=== PATIENT | male | born 1970 | race African-American/Black ===

== ENCOUNTER 2019-02-08 09:21 | Inpatient (IN) | payer OTHER ==
[2019-02-08 10:05] VITALS: BMI 32.8
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
[2019-02-08] MEDS ORDERED: IBUPROFEN 400 MG TABLET (FP) PO PRN (11:24)
[2019-02-08] MEDS ORDERED: MAG HYDROX/AL HYDROX/SIMETH 30 ML UNIT-DOSE CUP PO PRN (11:24)
[2019-02-08] MEDS ORDERED: chlordiazePOXIDE HCL 25 MG CAPSULE PO PRN (11:24)
[2019-02-08] MEDS ORDERED: ACETAMINOPHEN 325 MG TABLET (FP) PO PRN ×2 (11:24)
[2019-02-08] MEDS ORDERED: METHOCARBAMOL 500 MG TABLET PO PRN (11:24)
[2019-02-08] MEDS ORDERED: MAGNESIUM CITRATE 300 ML BOTTLE PO PRN (11:24)
[2019-02-08] MEDS ORDERED: BISMUTH SUBSALICYLATE 524 MG/30 ML UD PO PRN (11:24)
[2019-02-08] MEDS ORDERED: hydrOXYzine PAMOATE 25 MG CAPSULE (FP) PO PRN (11:24)
[2019-02-08] MEDS ORDERED: MENTHOL/PHENOL 1 EACH UD MM PRN (11:24)
[2019-02-08] MEDS ORDERED: MAGNESIUM HYDROX 2400MG/30ML ORAL SUSPENSION 30 ML CUP PO PRN (11:24)
[2019-02-08] MEDS: chlordiazePOXIDE HCL 25 MG CAPSULE PO SCH ×2 (17:27→22:48)
[2019-02-08] MEDS: THIAMINE HCL 100 MG TABLET (FP) PO SCH (22:48)
[2019-02-08] MEDS: MELATONIN 5 MG TABLETS PO PRN (22:48)
[2019-02-09] MEDS: chlordiazePOXIDE HCL 25 MG CAPSULE PO SCH ×4 (06:41→22:32)
[2019-02-09 10:08] LABS: HEMATOCRIT 40.2 % (35.4-49); MCH 24.9 pg (25.7-33.7); MCHC 34.7 g/dl (32.0-35.9); MEAN CELL VOLUME 71.8 fl (80-96); PLATELET COUNT 243 K/MM3 (134-434); RBC 5.59 M/mm3 (4.00-5.60); RDW 18.2 % (11.9-15.9); WHITE BLOOD COUNT 6.7 K/mm3 (4.0-10.0)
[2019-02-09 10:21] LABS: ALBUMIN 3.9 g/dl (3.4-5.0); BILIRUBIN,TOTAL 0.8 mg/dL (0.2-1); BLOOD UREA NITROGEN 12.5 mg/dL (7-18); CREATININE 0.9 mg/dL (0.55-1.3); POTASSIUM 4.4 mmol/L (3.5-5.1); TOT PROT 7.3 g/dl (6.4-8.2)
[2019-02-09] MEDS: PRENATAL VITAMINS W/ FOLIC ACID TABLET (FP) PO SCH (10:26)
[2019-02-09] MEDS: TOLNAFTATE 1% CREAM 15 GM TUBE TP SCH ×2 (10:27→22:32)
--- NOTE | 2019-02-09 11:31 | PN ---
[facility] CIWA - CIWA Score Nausea/Vomitin-Mild Nausea/No Vomiting Muscle Tremors: 4-Moderate,w/Arms Extend Anxiety: 3 Agitation: 3 Paroxysmal Sweats: 2 Orientation: 0-Oriented Tacttile Disturbances: 0-None Auditory Disturbances: 0-None Visual Disturbances: 0-None Headache: 0-None Present CIWA-Ar Total Score: 13 S Progress Note (SOAP) Subjective: 48 years old male admitted on 02/08/19 for acute alcohol withdrawal sx management ding ok with librum detox regimen feeling tired resting on bed limited conversation with the staff Objective: 02/09/19 11:27 Vital Signs Temperature 98.1 F 02/09/19 09:45 Pulse Rate 80 02/09/19 09:45 Respiratory Rate 18 02/09/19 09:45 Blood Pressure 107/63 02/09/19 09:45 O2 Sat by Pulse Oximetry (%) Vital Signs Laboratory Last Values WBC 6.7 K/mm3 (4.0-10.0) 02/09/19 08:00 RBC 5.59 M/mm3 (4.00-5.60) 02/09/19 08:00 Hgb 14.0 GM/dL (11.7-16.9) 02/09/19 08:00 Hct 40.2 % (35.4-49) 02/09/19 08:00 MCV 71.8 fl (80-96) L 02/09/19 08:00 MCH 24.9 pg (25.7-33.7) L 02/09/19 08:00 MCHC 34.7 g/dl (32.0-35.9) 02/09/19 08:00 RDW 18.2 % (11.9-15.9) H 02/09/19 08:00 Plt Count 243 K/MM3 (134-434) 02/09/19 08:00 MPV 9.0 fl (7.5-11.1) 02/09/19 08:00 Sodium 139 mmol/L (136-145) 02/09/19 08:00 Potassium 4.4 mmol/L (3.5-5.1) 02/09/19 08:00 Chloride 104 mmol/L (98-107) 02/09/19 08:00 Carbon Dioxide 28 mmol/L (21-32) 02/09/19 08:00 Anion Gap 7 MMOL/L (8-16) L 02/09/19 08:00 BUN 12.5 mg/dL (7-18) 02/09/19 08:00 Creatinine 0.9 mg/dL (0.55-1.3) 02/09/19 08:00 Est GFR (CKD-EPI)AfAm 117.47 02/09/19 08:00 Est GFR (CKD-EPI)NonAf 101.35 02/09/19 08:00 Random Glucose 90 mg/dL (74-106) 02/09/19 08:00 Calcium 9.0 mg/dL (8.5-10.1) 02/09/19 08:00 Total Bilirubin 0.8 mg/dL (0.2-1) 02/09/19 08:00 AST 24 U/L (15-37) 02/09/19 08:00 ALT 44 U/L (13-61) 02/09/19 08:00 Alkaline Phosphatase 91 U/L (45-117) 02/09/19 08:00 Total Protein 7.3 g/dl (6.4-8.2) 02/09/19 08:00 Albumin 3.9 g/dl (3.4-5.0) 02/09/19 08:00 lab noted Assessment: 02/09/19 11:30 alcohol withdrawal sx alert oriented x 3 no chest pain speech clearly Plan: continue librium detox regimen
[2019-02-09] MEDS: THIAMINE HCL 100 MG TABLET (FP) PO SCH (22:32)
[2019-02-10] MEDS: chlordiazePOXIDE HCL 25 MG CAPSULE PO SCH ×4 (05:58→22:42)
--- NOTE | 2019-02-10 09:39 | PN ---
[facility] CIWA - CIWA Score Nausea/Vomitin-Mild Nausea/No Vomiting Muscle Tremors: 2 Anxiety: 3 Agitation: 2 Paroxysmal Sweats: 2 Orientation: 0-Oriented Tacttile Disturbances: 0-None Auditory Disturbances: 0-None Visual Disturbances: 0-None Headache: 0-None Present CIWA-Ar Total Score: 10 [facility] Progress Note (SOAP) Subjective: doing well with librium detox regimen and 40 mg of methadone feeling better today ambulating on hallway social with peers in day room less tremor no headache Objective: 02/10/19 09:41 Vital Signs Temperature 96.8 F L 02/10/19 09:16 Pulse Rate 92 H 02/10/19 09:16 Respiratory Rate 20 02/10/19 09:16 Blood Pressure 112/81 02/10/19 09:16 O2 Sat by Pulse Oximetry (%) Laboratory Last Values WBC 6.7 K/mm3 (4.0-10.0) 02/09/19 08:00 RBC 5.59 M/mm3 (4.00-5.60) 02/09/19 08:00 Hgb 14.0 GM/dL (11.7-16.9) 02/09/19 08:00 Hct 40.2 % (35.4-49) 02/09/19 08:00 MCV 71.8 fl (80-96) L 02/09/19 08:00 MCH 24.9 pg (25.7-33.7) L 02/09/19 08:00 MCHC 34.7 g/dl (32.0-35.9) 02/09/19 08:00 RDW 18.2 % (11.9-15.9) H 02/09/19 08:00 Plt Count 243 K/MM3 (134-434) 02/09/19 08:00 MPV 9.0 fl (7.5-11.1) 02/09/19 08:00 Sodium 139 mmol/L (136-145) 02/09/19 08:00 Potassium 4.4 mmol/L (3.5-5.1) 02/09/19 08:00 Chloride 104 mmol/L (98-107) 02/09/19 08:00 Carbon Dioxide 28 mmol/L (21-32) 02/09/19 08:00 Anion Gap 7 MMOL/L (8-16) L 02/09/19 08:00 BUN 12.5 mg/dL (7-18) 02/09/19 08:00 Creatinine 0.9 mg/dL (0.55-1.3) 02/09/19 08:00 Est GFR (CKD-EPI)AfAm 117.47 02/09/19 08:00 Est GFR (CKD-EPI)NonAf 101.35 02/09/19 08:00 Random Glucose 90 mg/dL (74-106) 02/09/19 08:00 Calcium 9.0 mg/dL (8.5-10.1) 02/09/19 08:00 Total Bilirubin 0.8 mg/dL (0.2-1) 02/09/19 08:00 AST 24 U/L (15-37) 02/09/19 08:00 ALT 44 U/L (13-61) 02/09/19 08:00 Alkaline Phosphatase 91 U/L (45-117) 02/09/19 08:00 Total Protein 7.3 g/dl (6.4-8.2) 02/09/19 08:00 Albumin 3.9 g/dl (3.4-5.0) 02/09/19 08:00 RPR Titer Nonreactive (NONREACTIVE) 02/09/19 08:00 HIV 1&2 Antibody Screen Cancelled 02/09/19 08:00 HIV P24 Antigen Cancelled 02/09/19 08:00 lab noted 02/10/19 09:41 anxious about alcohol coping Assessment: 02/10/19 09:42 alcohol withdrawal sx alert oriented x 3 steady gait coherent speech tolerate food and fluid well Plan: continue librium detox regimen
[2019-02-10] MEDS: PRENATAL VITAMINS W/ FOLIC ACID TABLET (FP) PO SCH (10:27)
[2019-02-10] MEDS: TOLNAFTATE 1% CREAM 15 GM TUBE TP SCH ×2 (10:27→22:41)
[2019-02-10 12:24] LABS: URINE APPEARANCE CLEAR; URINE BILIRUBIN NEGATIVE (NEGATIVE); URINE COLOR YELLOW; URINE GLUCOSE (UA) NEGATIVE (NEGATIVE); URINE KETONE NEGATIVE (NEGATIVE); URINE LEUK ESTERASE NEGATIVE (NEGATIVE); URINE NITRITE NEGATIVE (NEGATIVE); URINE PROTEIN NEGATIVE (NEGATIVE); URINE UROBILINOGEN 0.2 mg/dL (0.2-1.0)
[2019-02-10] MEDS: THIAMINE HCL 100 MG TABLET (FP) PO SCH (22:41)
[2019-02-10] MEDS: MELATONIN 5 MG TABLETS PO PRN (22:41)
[2019-02-11] MEDS ORDERED: chlordiazePOXIDE HCL 10 MG CAPSULE PO PRN
[2019-02-11] MEDS: chlordiazePOXIDE HCL 10 MG CAPSULE PO SCH ×4 (05:50→22:33)
--- NOTE | 2019-02-11 09:36 | PN ---
S CIWA - CIWA Score Nausea/Vomitin-No Nausea/No Vomiting Muscle Tremors: 2 Anxiety: 2 Agitation: 2 Paroxysmal Sweats: No Perspiration Orientation: 0-Oriented Tacttile Disturbances: 0-None Auditory Disturbances: 0-None Visual Disturbances: 0-None Headache: 0-None Present CIWA-Ar Total Score: 6 [facility] Progress Note (SOAP) Subjective: doing well with librium detox regimen received methadone 40 mg po today feeling better slept through the night less tremor mild anxiety discuss chronic negtive impact on obesity encourage weight loss and healthy life style Objective: 02/11/19 09:38 Vital Signs Temperature 97.0 F L 02/11/19 06:44 Pulse Rate 76 02/11/19 06:44 Respiratory Rate 18 02/11/19 06:44 Blood Pressure 100/63 02/11/19 06:44 O2 Sat by Pulse Oximetry (%) Laboratory Last Values WBC 6.7 K/mm3 (4.0-10.0) 02/09/19 08:00 RBC 5.59 M/mm3 (4.00-5.60) 02/09/19 08:00 Hgb 14.0 GM/dL (11.7-16.9) 02/09/19 08:00 Hct 40.2 % (35.4-49) 02/09/19 08:00 MCV 71.8 fl (80-96) L 02/09/19 08:00 MCH 24.9 pg (25.7-33.7) L 02/09/19 08:00 MCHC 34.7 g/dl (32.0-35.9) 02/09/19 08:00 RDW 18.2 % (11.9-15.9) H 02/09/19 08:00 Plt Count 243 K/MM3 (134-434) 02/09/19 08:00 MPV 9.0 fl (7.5-11.1) 02/09/19 08:00 Sodium 139 mmol/L (136-145) 02/09/19 08:00 Potassium 4.4 mmol/L (3.5-5.1) 02/09/19 08:00 Chloride 104 mmol/L (98-107) 02/09/19 08:00 Carbon Dioxide 28 mmol/L (21-32) 02/09/19 08:00 Anion Gap 7 MMOL/L (8-16) L 02/09/19 08:00 BUN 12.5 mg/dL (7-18) 02/09/19 08:00 Creatinine 0.9 mg/dL (0.55-1.3) 02/09/19 08:00 Est GFR (CKD-EPI)AfAm 117.47 02/09/19 08:00 Est GFR (CKD-EPI)NonAf 101.35 02/09/19 08:00 Random Glucose 90 mg/dL (74-106) 02/09/19 08:00 Calcium 9.0 mg/dL (8.5-10.1) 02/09/19 08:00 Total Bilirubin 0.8 mg/dL (0.2-1) 02/09/19 08:00 AST 24 U/L (15-37) 02/09/19 08:00 ALT 44 U/L (13-61) 02/09/19 08:00 Alkaline Phosphatase 91 U/L (45-117) 02/09/19 08:00 Total Protein 7.3 g/dl (6.4-8.2) 02/09/19 08:00 Albumin 3.9 g/dl (3.4-5.0) 02/09/19 08:00 Urine Color Yellow 02/10/19 08:20 Urine Appearance Clear 02/10/19 08:20 Urine pH 6.0 (5.0-8.0) 02/10/19 08:20 Ur Specific [place] 1.021 (1.010-1.035) 02/10/19 08:20 Urine Protein Negative (NEGATIVE) 02/10/19 08:20 Urine Glucose (UA) Negative (NEGATIVE) 02/10/19 08:20 Urine Ketones Negative (NEGATIVE) 02/10/19 08:20 Urine Blood Negative (NEGATIVE) 02/10/19 08:20 Urine Nitrite Negative (NEGATIVE) 02/10/19 08:20 Urine Bilirubin Negative (NEGATIVE) 02/10/19 08:20 Urine Urobilinogen 0.2 mg/dL (0.2-1.0) 02/10/19 08:20 Ur Leukocyte Esterase Negative (NEGATIVE) 02/10/19 08:20 RPR Titer Nonreactive (NONREACTIVE) 02/09/19 08:00 HIV 1&2 Ag/Ab, 4th Gen Non reactive (Non Reactive) 02/09/19 10:00 HIV 1&2 Antibody Screen Cancelled 02/09/19 08:00 HIV P24 Antigen Cancelled 02/09/19 08:00 lab noted Assessment: 02/11/19 09:38 alcohol withdrawal sx alert oriented x 3 02/11/19 09:40 S1S2 no shortness of breath tolerate food and fluid well Plan: continue libirum detox regimen and methadone 40 mg po daily
[2019-02-11] MEDS: PRENATAL VITAMINS W/ FOLIC ACID TABLET (FP) PO SCH (11:10)
[2019-02-11] MEDS: TOLNAFTATE 1% CREAM 15 GM TUBE TP SCH ×2 (11:11→22:32)
[2019-02-11] MEDS: MELATONIN 5 MG TABLETS PO PRN (22:33)
[2019-02-11] MEDS: THIAMINE HCL 100 MG TABLET (FP) PO SCH (22:33)
[2019-02-12] MEDS: chlordiazePOXIDE HCL 10 MG CAPSULE PO SCH ×2 (05:32→17:31)
--- NOTE | 2019-02-12 09:48 | PN ---
[facility] CIWA - CIWA Score Nausea/Vomitin-No Nausea/No Vomiting Muscle Tremors: 1-None Visible, but [place] Anxiety: 1-Mildly Anxious Agitation: 1-Slight > Activity Paroxysmal Sweats: No Perspiration Orientation: 0-Oriented Tacttile Disturbances: 0-None Auditory Disturbances: 0-None Visual Disturbances: 0-None Headache: 0-None Present CIWA-Ar Total Score: 3 S Progress Note (SOAP) Subjective: doing well with librium detox regimen resting on bed comfortably limited conversation with staff [facility] as patient preference denies cardiac issue that EKG periodically at methadone program Objective: 02/12/19 09:47 Vital Signs Temperature 98.8 F 02/12/19 09:35 Pulse Rate 90 02/12/19 09:35 Respiratory Rate 20 02/12/19 09:35 Blood Pressure 102/69 02/12/19 09:35 O2 Sat by Pulse Oximetry (%) Laboratory Last Values WBC 6.7 K/mm3 (4.0-10.0) 02/09/19 08:00 RBC 5.59 M/mm3 (4.00-5.60) 02/09/19 08:00 Hgb 14.0 GM/dL (11.7-16.9) 02/09/19 08:00 Hct 40.2 % (35.4-49) 02/09/19 08:00 MCV 71.8 fl (80-96) L 02/09/19 08:00 MCH 24.9 pg (25.7-33.7) L 02/09/19 08:00 MCHC 34.7 g/dl (32.0-35.9) 02/09/19 08:00 RDW 18.2 % (11.9-15.9) H 02/09/19 08:00 Plt Count 243 K/MM3 (134-434) 02/09/19 08:00 MPV 9.0 fl (7.5-11.1) 02/09/19 08:00 Sodium 139 mmol/L (136-145) 02/09/19 08:00 Potassium 4.4 mmol/L (3.5-5.1) 02/09/19 08:00 Chloride 104 mmol/L (98-107) 02/09/19 08:00 Carbon Dioxide 28 mmol/L (21-32) 02/09/19 08:00 Anion Gap 7 MMOL/L (8-16) L 02/09/19 08:00 BUN 12.5 mg/dL (7-18) 02/09/19 08:00 Creatinine 0.9 mg/dL (0.55-1.3) 02/09/19 08:00 Est GFR (CKD-EPI)AfAm 117.47 02/09/19 08:00 Est GFR (CKD-EPI)NonAf 101.35 02/09/19 08:00 Random Glucose 90 mg/dL (74-106) 02/09/19 08:00 Calcium 9.0 mg/dL (8.5-10.1) 02/09/19 08:00 Total Bilirubin 0.8 mg/dL (0.2-1) 02/09/19 08:00 AST 24 U/L (15-37) 02/09/19 08:00 ALT 44 U/L (13-61) 02/09/19 08:00 Alkaline Phosphatase 91 U/L (45-117) 02/09/19 08:00 Total Protein 7.3 g/dl (6.4-8.2) 02/09/19 08:00 Albumin 3.9 g/dl (3.4-5.0) 02/09/19 08:00 Urine Color Yellow 02/10/19 08:20 Urine Appearance Clear 02/10/19 08:20 Urine pH 6.0 (5.0-8.0) 02/10/19 08:20 Ur Specific [place] 1.021 (1.010-1.035) 02/10/19 08:20 Urine Protein Negative (NEGATIVE) 02/10/19 08:20 Urine Glucose (UA) Negative (NEGATIVE) 02/10/19 08:20 Urine Ketones Negative (NEGATIVE) 02/10/19 08:20 Urine Blood Negative (NEGATIVE) 02/10/19 08:20 Urine Nitrite Negative (NEGATIVE) 02/10/19 08:20 Urine Bilirubin Negative (NEGATIVE) 02/10/19 08:20 Urine Urobilinogen 0.2 mg/dL (0.2-1.0) 02/10/19 08:20 Ur Leukocyte Esterase Negative (NEGATIVE) 02/10/19 08:20 RPR Titer Nonreactive (NONREACTIVE) 02/09/19 08:00 HIV 1&2 Ag/Ab, 4th Gen Non reactive (Non Reactive) 02/09/19 10:00 HIV 1&2 Antibody Screen Cancelled 02/09/19 08:00 HIV P24 Antigen Cancelled 02/09/19 08:00 lab noted Assessment: 02/12/19 09:48 alcohol withdrawal sx alert oriented x 3 no wheezing Plan: continue librium detox regimen
[2019-02-12] MEDS: PRENATAL VITAMINS W/ FOLIC ACID TABLET (FP) PO SCH (10:50)
[2019-02-12] MEDS: TOLNAFTATE 1% CREAM 15 GM TUBE TP SCH ×2 (10:50→22:33)
[2019-02-12] MEDS: MELATONIN 5 MG TABLETS PO PRN (22:33)
[2019-02-12] MEDS: THIAMINE HCL 100 MG TABLET (FP) PO SCH (22:33)
[2019-02-13] MEDS ORDERED: chlordiazePOXIDE HCL 10 MG CAPSULE PO ONE (05:00)
[2019-02-13 09:35] VITALS: BP 117/81; PULSE 91; TEMP 96.9
--- NOTE | 2019-02-13 10:11 | DS ---
[facility] Detox Discharge Summary Admission Date: 02/08/19 Discharge Date: 02/13/19 - History Present History: Alcohol Dependence Additional Comments: 48 years old male admitted on 02/08/19 - Physical Exam Results Vital Signs: Vital Signs Temperature 96.9 F L 02/13/19 09:34 Pulse Rate 91 H 02/13/19 09:34 Respiratory Rate 20 02/13/19 09:34 Blood Pressure 117/81 02/13/19 09:34 O2 Sat by Pulse Oximetry (%) - Treatment Hospital Course: Detox Protocol Followed, Detoxed Safely, Responded well, Discharged Condition Good, Rehab Referral Accepted - Medication Discharge Medications: Ambulatory Orders NK [No Known Home Medication] 03/21/16 CIWA Score - CIWA Score Nausea/Vomitin-No Nausea/No Vomiting Muscle Tremors: None Anxiety: 0-No Anxiety, at Ease Agitation: 0-Normal Activity Paroxysmal Sweats: No Perspiration Orientation: 0-Oriented Tacttile Disturbances: 0-None Auditory Disturbances: 0-None Visual Disturbances: 0-None Headache: 0-None Present CIWA-Ar Total Score: 0
--- NOTE | 2019-02-13 10:18 | DS ---
[facility] Detox Discharge Summary Admission Date: 02/08/19 Discharge Date: 02/13/19 - History Present History: Alcohol Dependence Additional Comments: 48 years old male admitted on 02/08/19 for acute alcohol withdrawal sx management doing well with librium detox regimen no complication through out the detox regimen received methadone 40 mg po today feeling well alert oriented x 3 clear lung sound bilaterally abdomen soft none tenderness - Physical Exam Results Vital Signs: Vital Signs Temperature 96.9 F L 02/13/19 09:34 Pulse Rate 91 H 02/13/19 09:34 Respiratory Rate 20 02/13/19 09:34 Blood Pressure 117/81 02/13/19 09:34 O2 Sat by Pulse Oximetry (%) Pertinent Admission Physical Exam Findings: alcohol withdrawal sx Laboratory Last Values WBC 6.7 K/mm3 (4.0-10.0) 02/09/19 08:00 RBC 5.59 M/mm3 (4.00-5.60) 02/09/19 08:00 Hgb 14.0 GM/dL (11.7-16.9) 02/09/19 08:00 Hct 40.2 % (35.4-49) 02/09/19 08:00 MCV 71.8 fl (80-96) L 02/09/19 08:00 MCH 24.9 pg (25.7-33.7) L 02/09/19 08:00 MCHC 34.7 g/dl (32.0-35.9) 02/09/19 08:00 RDW 18.2 % (11.9-15.9) H 02/09/19 08:00 Plt Count 243 K/MM3 (134-434) 02/09/19 08:00 MPV 9.0 fl (7.5-11.1) 02/09/19 08:00 Sodium 139 mmol/L (136-145) 02/09/19 08:00 Potassium 4.4 mmol/L (3.5-5.1) 02/09/19 08:00 Chloride 104 mmol/L (98-107) 02/09/19 08:00 Carbon Dioxide 28 mmol/L (21-32) 02/09/19 08:00 Anion Gap 7 MMOL/L (8-16) L 02/09/19 08:00 BUN 12.5 mg/dL (7-18) 02/09/19 08:00 Creatinine 0.9 mg/dL (0.55-1.3) 02/09/19 08:00 Est GFR (CKD-EPI)AfAm 117.47 02/09/19 08:00 Est GFR (CKD-EPI)NonAf 101.35 02/09/19 08:00 Random Glucose 90 mg/dL (74-106) 02/09/19 08:00 Calcium 9.0 mg/dL (8.5-10.1) 02/09/19 08:00 Total Bilirubin 0.8 mg/dL (0.2-1) 02/09/19 08:00 AST 24 U/L (15-37) 02/09/19 08:00 ALT 44 U/L (13-61) 02/09/19 08:00 Alkaline Phosphatase 91 U/L (45-117) 02/09/19 08:00 Total Protein 7.3 g/dl (6.4-8.2) 02/09/19 08:00 Albumin 3.9 g/dl (3.4-5.0) 02/09/19 08:00 Urine Color Yellow 02/10/19 08:20 Urine Appearance Clear 02/10/19 08:20 Urine pH 6.0 (5.0-8.0) 02/10/19 08:20 Ur Specific [place] 1.021 (1.010-1.035) 02/10/19 08:20 Urine Protein Negative (NEGATIVE) 02/10/19 08:20 Urine Glucose (UA) Negative (NEGATIVE) 02/10/19 08:20 Urine Ketones Negative (NEGATIVE) 02/10/19 08:20 Urine Blood Negative (NEGATIVE) 02/10/19 08:20 Urine Nitrite Negative (NEGATIVE) 02/10/19 08:20 Urine Bilirubin Negative (NEGATIVE) 02/10/19 08:20 Urine Urobilinogen 0.2 mg/dL (0.2-1.0) 02/10/19 08:20 Ur Leukocyte Esterase Negative (NEGATIVE) 02/10/19 08:20 RPR Titer Nonreactive (NONREACTIVE) 02/09/19 08:00 HIV 1&2 Ag/Ab, 4th Gen Non reactive (Non Reactive) 02/09/19 10:00 HIV 1&2 Antibody Screen Cancelled 02/09/19 08:00 HIV P24 Antigen Cancelled 02/09/19 08:00 TB (QFT) Incubation (.) 02/09/19 08:00 TB Test (QFT) Nil 0.08 IU/mL (.) 02/09/19 08:00 TB Test (QFT) Mitogen >10.00 IU/mL (.) 02/09/19 08:00 TB Test (QFT) Antigen 0.07 IU/mL (.) 02/09/19 08:00 TB Test (QFT) Negative (Negative) 02/09/19 08:00 TB Positive Criteria (.) 02/09/19 08:00 lab noted - Treatment Hospital Course: Detox Protocol Followed, Detoxed Safely, Responded well, Discharged Condition Good, Rehab Referral Accepted Patient has Accepted a [facility] Referral [facility]: [facility] - Medication Discharge Medications: Ambulatory Orders NK [No Known Home Medication] 03/21/16 - Diagnosis (1) Alcohol dependence with uncomplicated withdrawal Current Visit: Yes Status: Acute - AMA Did Patient Leave Against Medical Advice: No
[2019-02-13] MEDS: PRENATAL VITAMINS W/ FOLIC ACID TABLET (FP) PO SCH (11:00)
[2019-02-13] MEDS: TOLNAFTATE 1% CREAM 15 GM TUBE TP SCH (11:00)
== END 2019-02-13 12:30 | disposition other institution (70) | DRG 775 ==
LOC: YASAS 09:21 → Y3N 12:56
PROVIDERS: ADMIT Surgery; ATTEND Surgery
PROC: HZ2ZZZZ Detoxification Services for Substance Abuse Treatment (ICD-10-PCS; principal; 2019-02-08)
DX: F10.230 Alcohol dependence with withdrawal, uncomplicated (principal); F10.220 Alcohol dependence with intoxication, uncomplicated; F16.20 Hallucinogen dependence, uncomplicated; B35.3 Tinea pedis; Z87.438 Personal history of other diseases of male genital organs
CPT/HCPCS: 36415; 80053; 81003; 85027; 86480; 86593; 87389

== ENCOUNTER 2019-02-13 12:33 | Inpatient (IN) | payer OTHER ==
--- NOTE | 2019-02-13 10:22 | HP ---
JOSE GUADALUPE ZAMARRIPA Rehab Assess/Revision - Admission History Admitted to Rehab from: [facility] Date of Admission to Rehab: 02/13/19 - Findings Detox History & Physical reviewed: Yes Concur with findings: Yes Comments/Additional Findings: transferred from detox to rehab admission as per protocol Inpatient Rehab Admission - Rehab Decision to Admit Inpatient rehab admission?: Yes - Initial Determination Are CD services needed?: Yes Free of communicable disease: Yes Not in need of hospitalization: Yes - Rehab Admission Criteria Previous failed treatment: Yes Poor recovery environment: Yes Comorbidities: Yes Lacks judgement: No Patient is meeting Inpatient Rehab admission criteria:: Yes
[~2019-02-13 12:33] MED LIST: ACETAMINOPHEN 325 MG TABLET (FP) PO PRN; IBUPROFEN 400 MG TABLET (FP) PO PRN; LOPERAMIDE HCL 2 MG CAPSULE PO PRN; MAG HYDROX/AL HYDROX/SIMETH 30 ML UNIT-DOSE CUP PO PRN; MAGNESIUM CITRATE 300 ML BOTTLE PO PRN; MAGNESIUM HYDROX 2400MG/30ML ORAL SUSPENSION 30 ML CUP PO PRN; MENTHOL/PHENOL 1 EACH UD MM PRN; P-EPHED 60MG/TRIPROLIDI 2.5MG TABLET PO PRN; guaiFENesin 200 MG/10 ML 10 ML UNIT-DOSE CUPS PO PRN
--- NOTE | 2019-02-13 17:00 | EKG ---
Test Reason : Blood Pressure : / mmHG Vent. Rate : 085 BPM Atrial Rate : 085 BPM P-R Int : 148 ms QRS Dur : 084 ms QT Int : 340 ms P-R-T Axes : 080 063 030 degrees QTc Int : 404 ms NORMAL SINUS RHYTHM NORMAL ECG NO PREVIOUS ECGS AVAILABLE Confirmed by FLORA ZAMARRIPA, JOHN ([id number]) on 02/13/2019 4:59:58 PM Referred By: Analy Heaton Confirmed By:JOHN HINES MD
[2019-02-13] MEDS: CYCLOBENZAPRINE HCL 10 MG TABLET (FP) PO SCH (22:07)
[2019-02-13] MEDS: THIAMINE HCL 100 MG TABLET (FP) PO SCH (22:07)
[2019-02-14] MEDS: CYCLOBENZAPRINE HCL 10 MG TABLET (FP) PO SCH ×3 (06:28→23:07)
[2019-02-14] MEDS: PRENATAL VITAMINS W/ FOLIC ACID TABLET (FP) PO SCH (10:33)
[2019-02-14] MEDS: THIAMINE HCL 100 MG TABLET (FP) PO SCH (23:07)
[2019-02-15] MEDS: CYCLOBENZAPRINE HCL 10 MG TABLET (FP) PO SCH ×3 (06:59→23:54)
[2019-02-15] MEDS: PRENATAL VITAMINS W/ FOLIC ACID TABLET (FP) PO SCH (10:15)
[2019-02-15] MEDS: THIAMINE HCL 100 MG TABLET (FP) PO SCH (23:54)
[2019-02-16] MEDS: CYCLOBENZAPRINE HCL 10 MG TABLET (FP) PO SCH ×3 (06:40→21:21)
[2019-02-16] MEDS: PRENATAL VITAMINS W/ FOLIC ACID TABLET (FP) PO SCH (10:39)
[2019-02-16] MEDS: THIAMINE HCL 100 MG TABLET (FP) PO SCH (21:21)
[2019-02-16] MEDS: MELATONIN 5 MG TABLETS PO PRN (21:21)
[2019-02-17] MEDS: CYCLOBENZAPRINE HCL 10 MG TABLET (FP) PO SCH ×3 (07:06→21:55)
[2019-02-17] MEDS: PRENATAL VITAMINS W/ FOLIC ACID TABLET (FP) PO SCH (10:40)
[2019-02-17] MEDS: THIAMINE HCL 100 MG TABLET (FP) PO SCH (21:56)
[2019-02-17] MEDS: MELATONIN 5 MG TABLETS PO PRN (21:56)
[2019-02-18] MEDS: CYCLOBENZAPRINE HCL 10 MG TABLET (FP) PO SCH (07:21)
[2019-02-18] MEDS: PRENATAL VITAMINS W/ FOLIC ACID TABLET (FP) PO SCH (10:11)
--- NOTE | 2019-02-18 12:08 | PN ---
[facility] Progress Note Note: Pt seen today for flexeril change to prn- pt too sleepy: done. Pt agrees to be seen for possible anxiety by .
[2019-02-18] MEDS: CYCLOBENZAPRINE HCL 10 MG TABLET (FP) PO PRN ×2 (13:03→21:29)
[2019-02-18] MEDS: MELATONIN 5 MG TABLETS PO PRN (21:28)
[2019-02-18] MEDS: THIAMINE HCL 100 MG TABLET (FP) PO SCH (21:29)
--- NOTE | 2019-02-19 07:05 | CONSULT ---
[facility] Psychiatric Consult - Data Date of interview: 02/19/19 Admission source: 3N Identifying data: Mr Neri s a 48 years old male, father daughter, unemployed, homeless seeking rehab treatment for alcohol and phencyclidine Substance Abuse History: Reports hisory of alcohol and pcp use. Refer to addiction counselor's summary for further information Psychiatric History: Patient approached at bedside. Told contract writer that he did not need to see psychiatrist Physical/Sexual Abuse/Trauma History: Denies
[2019-02-19] MEDS: PRENATAL VITAMINS W/ FOLIC ACID TABLET (FP) PO SCH (10:53)
[2019-02-19] MEDS: MELATONIN 5 MG TABLETS PO PRN (21:26)
[2019-02-19] MEDS: THIAMINE HCL 100 MG TABLET (FP) PO SCH (21:27)
[2019-02-19] MEDS: CYCLOBENZAPRINE HCL 10 MG TABLET (FP) PO PRN (21:27)
[2019-02-20] MEDS: PRENATAL VITAMINS W/ FOLIC ACID TABLET (FP) PO SCH (10:49)
[2019-02-20] MEDS: THIAMINE HCL 100 MG TABLET (FP) PO SCH (21:47)
[2019-02-21] MEDS: PRENATAL VITAMINS W/ FOLIC ACID TABLET (FP) PO SCH (10:20)
[2019-02-21] MEDS: CYCLOBENZAPRINE HCL 10 MG TABLET (FP) PO PRN (21:23)
[2019-02-21] MEDS: MELATONIN 5 MG TABLETS PO PRN (21:23)
[2019-02-21] MEDS: THIAMINE HCL 100 MG TABLET (FP) PO SCH (21:23)
[2019-02-22] MEDS: CYCLOBENZAPRINE HCL 10 MG TABLET (FP) PO PRN ×2 (07:02→21:20)
[2019-02-22] MEDS: PRENATAL VITAMINS W/ FOLIC ACID TABLET (FP) PO SCH (10:28)
[2019-02-22] MEDS: THIAMINE HCL 100 MG TABLET (FP) PO SCH (21:19)
[2019-02-22] MEDS: MELATONIN 5 MG TABLETS PO PRN (21:20)
[2019-02-23] MEDS: PRENATAL VITAMINS W/ FOLIC ACID TABLET (FP) PO SCH (11:07)
[2019-02-23] MEDS: CYCLOBENZAPRINE HCL 10 MG TABLET (FP) PO PRN (21:23)
[2019-02-23] MEDS: THIAMINE HCL 100 MG TABLET (FP) PO SCH (21:23)
[2019-02-23] MEDS: MELATONIN 5 MG TABLETS PO PRN (21:23)
--- NOTE | 2019-02-24 09:04 | PN ---
[facility] Progress Note Note: C/o dry itchy feet. Vital Signs 02/24/19 02/24/19 00:30 10:00 Temperature 98.3 F Pulse Rate 101 H Respiratory 18 18 Rate Blood Pressure 131/74 Limited exam: Feet;dry and scaly no skin breaks A/P Tinea Pedis Tinactin cream apply as directed.
[2019-02-24] MEDS: PRENATAL VITAMINS W/ FOLIC ACID TABLET (FP) PO SCH (10:34)
[2019-02-24] MEDS: TOLNAFTATE 1% CREAM 15 GM TUBE TP SCH ×2 (10:34→21:26)
[2019-02-24] MEDS: THIAMINE HCL 100 MG TABLET (FP) PO SCH (21:26)
[2019-02-24] MEDS: CYCLOBENZAPRINE HCL 10 MG TABLET (FP) PO PRN (21:26)
[2019-02-24] MEDS: MELATONIN 5 MG TABLETS PO PRN (21:26)
[2019-02-25 07:17] VITALS: BP 141/83; PULSE 86; TEMP 97.7
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
[2019-02-25] MEDS: PRENATAL VITAMINS W/ FOLIC ACID TABLET (FP) PO SCH (09:23)
[2019-02-25] MEDS: TOLNAFTATE 1% CREAM 15 GM TUBE TP SCH (09:32)
== END 2019-02-25 09:30 | disposition home or self-care (01) | DRG 772 ==
LOC: YASAS 12:33 → Y3W 12:35 → Y5N 02-14 11:22
PROVIDERS: ADMIT Neuromusculoskeletal Medicine & OMM; ATTEND Neuromusculoskeletal Medicine & OMM
PROC: HZ42ZZZ Group Counseling for Substance Abuse Treatment, Cognitive-Behavioral (ICD-10-PCS; principal; 2019-02-13)
DX: F10.20 Alcohol dependence, uncomplicated (principal); F16.20 Hallucinogen dependence, uncomplicated; E66.9 Obesity, unspecified; Z68.34 Body mass index [BMI] 34.0-34.9, adult; Z87.438 Personal history of other diseases of male genital organs
CPT/HCPCS: 93005; 93010

== ENCOUNTER 2019-03-08 08:17 | Inpatient (IN) | payer OTHER | END 2019-03-11 12:40 | disposition home or self-care (01) | LOC: YASAS 08:17 → Y6N 10:47 ==

== ENCOUNTER 2019-03-14 11:51 | Inpatient (IN) | payer OTHER ==
[2019-03-14 14:22] VITALS: BMI 32.3
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
[2019-03-14] MEDS ORDERED: ACETAMINOPHEN 325 MG TABLET (FP) PO PRN ×2 (16:38)
[2019-03-14] MEDS ORDERED: METHOCARBAMOL 500 MG TABLET PO PRN (16:38)
[2019-03-14] MEDS ORDERED: hydrOXYzine PAMOATE 25 MG CAPSULE (FP) PO PRN (16:38)
[2019-03-14] MEDS ORDERED: MAGNESIUM CITRATE 300 ML BOTTLE PO PRN (16:38)
[2019-03-14] MEDS ORDERED: chlordiazePOXIDE HCL 25 MG CAPSULE PO ONE (16:38)
[2019-03-14] MEDS ORDERED: MAGNESIUM HYDROX 2400MG/30ML ORAL SUSPENSION 30 ML CUP PO PRN (16:38)
[2019-03-14] MEDS ORDERED: MAG HYDROX/AL HYDROX/SIMETH 30 ML UNIT-DOSE CUP PO PRN (16:38)
[2019-03-14] MEDS ORDERED: BISMUTH SUBSALICYLATE 524 MG/30 ML UD PO PRN (16:38)
--- NOTE | 2019-03-14 16:53 | PN ---
Teaching Attending Note Name of Resident: Collin Gee ATTENDING PHYSICIAN STATEMENT I saw and evaluated the patient. I reviewed the resident's note and discussed the case with the resident. I agree with the resident's findings and plan as documented. SUBJECTIVE: pt here c/o symptoms as above, reports relapse on etoh since d/c from this facility 03/11/19 , drinking liquor 1 pint/day , latest use this morning , reports tremors , nausea/ vomiting , fall while intoxicated most recently seen at [facility] , w/up negative for frx. per pt . + blackouts in the past , seizure in 2015 07/ etoh w/d , reports PC 2 bags every other week . PMHX / PSHx : denies OBJECTIVE:WNWD , mild distress , mild UE tremors. ASSESSMENT AND PLAN: Alcohol use d/o - Librium taper . Vital Signs - 24 hr 03/14/19 12:12 Temperature 97.7 F Pulse Rate 97 H Respiratory 14 Rate Blood Pressure 146/99
[2019-03-14] MEDS: IBUPROFEN 400 MG TABLET (FP) PO PRN (19:15)
[2019-03-14] MEDS: THIAMINE HCL 100 MG TABLET (FP) PO SCH (22:45)
[2019-03-14] MEDS: chlordiazePOXIDE 5 MG CAPSULE PO SCH (22:45)
[2019-03-15] MEDS: chlordiazePOXIDE 5 MG CAPSULE PO SCH ×2 (06:01→12:48)
[2019-03-15] MEDS: MENTHOL/PHENOL 1 EACH UD MM PRN ×2 (06:05→20:06)
[2019-03-15] MEDS: PRENATAL VITAMINS W/ FOLIC ACID TABLET (FP) PO SCH (10:03)
[2019-03-15] MEDS: TOLNAFTATE 1% CREAM 15 GM TUBE TP SCH ×2 (10:04→23:21)
--- NOTE | 2019-03-15 16:42 | PN ---
S CIWA - CIWA Score Nausea/Vomitin Muscle Tremors: 3 Anxiety: 3 Agitation: 2 Paroxysmal Sweats: 3 Orientation: 0-Oriented Tacttile Disturbances: 0-None Auditory Disturbances: 0-None Visual Disturbances: 0-None Headache: 0-None Present CIWA-Ar Total Score: 14 BHS Progress Note (SOAP) Subjective: Sweating, Anxious, Tremors, Nausea. Objective: PATIENT A & O X 3, OBSERVED AMBULATING ON DETOX UNIT UNASSISTED. IN NO ACUTE DISTRESS. 03/15/19 16:40 Vital Signs Temperature 97.4 F L 03/15/19 13:37 Pulse Rate 106 H 03/15/19 13:37 Respiratory Rate 20 03/15/19 13:37 Blood Pressure 130/83 03/15/19 13:37 O2 Sat by Pulse Oximetry (%) RESULTS OF LABS FROM 03/09/2019 NOTED. 03/15/19 16:41 Assessment: 03/15/19 16:41 WITHDRAWAL SYMPTOMS. Plan: CONTINUE DETOX.
[2019-03-15] MEDS: THIAMINE HCL 100 MG TABLET (FP) PO SCH (22:53)
[2019-03-15] MEDS: MELATONIN 5 MG TABLETS PO PRN (22:54)
[2019-03-16] MEDS: chlordiazePOXIDE HCL 10 MG CAPSULE PO SCH ×2 (05:33→13:06)
[2019-03-16] MEDS: MENTHOL/PHENOL 1 EACH UD MM PRN ×2 (05:35→22:42)
[2019-03-16] MEDS: IBUPROFEN 400 MG TABLET (FP) PO PRN ×2 (08:47→17:14)
[2019-03-16] MEDS: PRENATAL VITAMINS W/ FOLIC ACID TABLET (FP) PO SCH (09:58)
[2019-03-16] MEDS: TOLNAFTATE 1% CREAM 15 GM TUBE TP SCH ×2 (09:58→22:40)
[2019-03-16] MEDS ORDERED: LIDOCAINE 5% TOPICAL PATCH TP SCH (13:30)
--- NOTE | 2019-03-16 13:34 | PN ---
S CIWA - CIWA Score Nausea/Vomitin-Mild Nausea/No Vomiting Muscle Tremors: 2 Anxiety: 2 Agitation: 2 Paroxysmal Sweats: 1-Minimal Palms Moist Orientation: 0-Oriented Tacttile Disturbances: 0-None Auditory Disturbances: 0-None Visual Disturbances: 0-None Headache: 1-Very Mild CIWA-Ar Total Score: 9 BHS Progress Note (SOAP) Subjective: 48 years old male multiple patient [facility] since 2010 patient requests ativan for alcohol detox regimen that librium "made me sleepy" discontinue librium begin ativan detox regimen c/o chronic back pain lidocain patch stuffy nose nasal sprade Objective: 03/16/19 13:33 Vital Signs Temperature 97.0 F L 03/16/19 13:13 Pulse Rate 100 H 03/16/19 13:13 Respiratory Rate 20 03/16/19 13:13 Blood Pressure 120/77 03/16/19 13:13 O2 Sat by Pulse Oximetry (%) 03/16/19 13:35 lab see 02/06/19 patient is anxious begin ativan detox regimen Assessment: 03/16/19 13:36 alcohol withdrawal sx Plan: continue ativan detox regimen
[2019-03-16] MEDS: LORazepam 0.5 MG TABLET PO SCH ×2 (13:40→22:14)
[2019-03-16] MEDS: SODIUM CHLORIDE NASAL SPRAY 44 ML BOTTLE NS SCH ×2 (14:43→22:13)
[2019-03-16] MEDS ORDERED: LIDOCAINE PATCH REMOVAL MC SCH (22:00)
[2019-03-16] MEDS: MELATONIN 5 MG TABLETS PO PRN (22:14)
[2019-03-16] MEDS: THIAMINE HCL 100 MG TABLET (FP) PO SCH (22:14)
[2019-03-17] MEDS ORDERED: chlordiazePOXIDE HCL 10 MG CAPSULE PO PRN
[2019-03-17] MEDS ORDERED: LORazepam 0.5 MG TABLET PO ONE (05:00)
[2019-03-17] MEDS ORDERED: chlordiazePOXIDE HCL 10 MG CAPSULE PO ONE (05:00)
[2019-03-17] MEDS: SODIUM CHLORIDE NASAL SPRAY 44 ML BOTTLE NS SCH (07:00)
[2019-03-17 09:33] VITALS: BP 137/80; PULSE 99; TEMP 97.6
--- NOTE | 2019-03-17 12:11 | DS ---
[facility] Detox Discharge Summary Admission Date: 03/14/19 Discharge Date: 03/17/19 - History Present History: Alcohol Dependence Additional Comments: did well with ativan detox regimen patient refused to be discharged today that one other female patient still on the unit for detox patient informed [facility] aftercare planned set for follow up second option aftercare at the [facility] this is 4th patient [facility] admission since January 2019 to February 2019 strong recommend the patient follow up with aftercare referral patient voice that [facility] is better place for hm to be due to one female patient transferred to [facility] encourage the patient focus on sobriety as purpose of detox admission patient is alert oriented x 3 speech coherently steady gait patient has difficulty avoid sexual content through out the discharge conversation - Physical Exam Results Vital Signs: Vital Signs Temperature 97.6 F 03/17/19 09:32 Pulse Rate 99 H 03/17/19 09:32 Respiratory Rate 20 03/17/19 09:32 Blood Pressure 137/80 03/17/19 09:32 O2 Sat by Pulse Oximetry (%) Pertinent Admission Physical Exam Findings: alcohol withdrawal sx lab see 01/2019 - Treatment Hospital Course: Detox Protocol Followed, Detoxed Safely, Responded well, Discharged Condition Good, Rehab Referral Accepted Patient has Accepted a Rehab Referral to: [facility] - Medication Discharge Medications: Ambulatory Orders NK [No Known Home Medication] 03/21/16 - Diagnosis (1) Substance induced mood disorder Current Visit: Yes Status: Suspected (2) Alcohol dependence with uncomplicated withdrawal Current Visit: Yes Status: Acute - AMA Did Patient Leave Against Medical Advice: No CIWA Score - CIWA Score Nausea/Vomitin-No Nausea/No Vomiting Muscle Tremors: 1-None Visible, but [place] Anxiety: 1-Mildly Anxious Agitation: 1-Slight > Activity Paroxysmal Sweats: No Perspiration Orientation: 0-Oriented Tacttile Disturbances: 0-None Auditory Disturbances: 0-None Visual Disturbances: 0-None Headache: 1-Very Mild CIWA-Ar Total Score: 4
== END 2019-03-17 10:59 | disposition home or self-care (01) | DRG 775 ==
LOC: YASAS 11:51 → Y3N 17:42
PROVIDERS: ADMIT Surgery; ATTEND Surgery
PROC: HZ2ZZZZ Detoxification Services for Substance Abuse Treatment (ICD-10-PCS; principal; 2019-03-14)
DX: F10.230 Alcohol dependence with withdrawal, uncomplicated (principal); F19.24 Other psychoactive substance dependence with psychoactive substance-induced mood disorder; E66.9 Obesity, unspecified; Z68.32 Body mass index [BMI] 32.0-32.9, adult

== ENCOUNTER 2019-07-06 08:43 | Inpatient (IN) | payer OTHER ==
[2019-07-06 09:18] VITALS: BMI 34.5
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
[2019-07-06] MEDS ORDERED: MAG HYDROX/AL HYDROX/SIMETH 30 ML UNIT-DOSE CUP PO PRN (10:04)
[2019-07-06] MEDS ORDERED: IBUPROFEN 400 MG TABLET (FP) PO PRN (10:04)
[2019-07-06] MEDS ORDERED: ACETAMINOPHEN 325 MG TABLET (FP) PO PRN ×2 (10:04)
[2019-07-06] MEDS ORDERED: MAGNESIUM HYDROX 2400MG/30ML ORAL SUSPENSION 30 ML CUP PO PRN (10:04)
[2019-07-06] MEDS ORDERED: hydrOXYzine PAMOATE 25 MG CAPSULE (FP) PO PRN (10:04)
[2019-07-06] MEDS ORDERED: BISMUTH SUBSALICYLATE 524 MG/30 ML UD PO PRN (10:04)
[2019-07-06] MEDS ORDERED: METHOCARBAMOL 500 MG TABLET PO PRN (10:04)
[2019-07-06] MEDS ORDERED: MENTHOL/PHENOL 1 EACH UD MM PRN (10:04)
[2019-07-06] MEDS ORDERED: chlordiazePOXIDE HCL 10 MG CAPSULE PO PRN (10:04)
[2019-07-06] MEDS ORDERED: MAGNESIUM CITRATE 300 ML BOTTLE PO PRN (10:04)
[2019-07-06] MEDS: chlordiazePOXIDE HCL 25 MG CAPSULE PO SCH ×2 (12:47→22:16)
[2019-07-06] MEDS: MELATONIN 5 MG TABLETS PO PRN (22:16)
[2019-07-06] MEDS: THIAMINE HCL 100 MG TABLET (FP) PO SCH (22:16)
[2019-07-07] MEDS: chlordiazePOXIDE HCL 25 MG CAPSULE PO SCH ×3 (07:00→21:58)
[2019-07-07 09:48] LABS: HEMATOCRIT 34.7 % (35.4-49); MCHC 34.5 g/dl (32.0-35.9); MEAN CELL VOLUME 72.5 fl (80-96); MEAN PLT VOLUME 9.4 fl (7.5-11.1); PLATELET COUNT 235 K/MM3 (134-434); RBC 4.79 M/mm3 (4.00-5.60); RDW 17.3 % (11.9-15.9); WHITE BLOOD COUNT 6.6 K/mm3 (4.0-10.0)
[2019-07-07] MEDS: PRENATAL VITAMINS W/ FOLIC ACID TABLET (FP) PO SCH (09:48)
[2019-07-07 10:10] LABS: ALBUMIN 3.2 g/dl (3.4-5.0); BILIRUBIN,TOTAL 0.7 mg/dL (0.2-1); BLOOD UREA NITROGEN 10.2 mg/dL (7-18); CALCIUM 8.5 mg/dL (8.5-10.1); CREATININE 0.9 mg/dL (0.55-1.3); POTASSIUM 3.9 mmol/L (3.5-5.1); TOT PROT 6.1 g/dl (6.4-8.2)
--- NOTE | 2019-07-07 11:03 | PN ---
S CIWA - CIWA Score Nausea/Vomitin-No Nausea/No Vomiting Muscle Tremors: 3 Anxiety: 3 Agitation: 3 Paroxysmal Sweats: 3 Orientation: 0-Oriented Tacttile Disturbances: 0-None Auditory Disturbances: 0-None Visual Disturbances: 0-None Headache: 0-None Present CIWA-Ar Total Score: 12 BHS Progress Note (SOAP) Subjective: sweats shakes interrupted sleep body aches dry/itchy feet Objective: 07/07/19 11:02 Vital Signs Temperature 97.9 F 07/07/19 05:00 Pulse Rate 72 07/07/19 05:00 Respiratory Rate 18 07/07/19 05:00 Blood Pressure 137/79 07/07/19 05:00 O2 Sat by Pulse Oximetry (%) Laboratory Tests 07/07/19 07/07/19 08:00 08:00 WBC 6.6 RBC 4.79 Hgb 12.0 Hct 34.7 L D MCV 72.5 L MCH 25.0 L MCHC 34.5 RDW 17.3 H Plt Count 235 MPV 9.4 Sodium 139 Potassium 3.9 Chloride 104 Carbon Dioxide 31 Anion Gap 4 L BUN 10.2 Creatinine 0.9 Est GFR (CKD-EPI)AfAm 117.47 Est GFR (CKD-EPI)NonAf 101.35 Random Glucose 76 Calcium 8.5 Total Bilirubin 0.7 AST 35 ALT 69 H Alkaline Phosphatase 69 Total Protein 6.1 L Albumin 3.2 L aaox3 ambulating no acute distress Assessment: 07/07/19 11:02 withdrawals Plan: continue detox tinactin cream
[2019-07-07] MEDS: TOLNAFTATE 1% CREAM 15 GM TUBE TP SCH ×2 (15:21→22:22)
[2019-07-07] MEDS: THIAMINE HCL 100 MG TABLET (FP) PO SCH (22:20)
[2019-07-07] MEDS: MELATONIN 5 MG TABLETS PO PRN (22:21)
[2019-07-08] MEDS: chlordiazePOXIDE 5 MG CAPSULE PO SCH ×3 (06:13→22:18)
[2019-07-08] MEDS: PRENATAL VITAMINS W/ FOLIC ACID TABLET (FP) PO SCH (10:45)
--- NOTE | 2019-07-08 10:57 | PN ---
S CIWA - CIWA Score Nausea/Vomitin-No Nausea/No Vomiting Muscle Tremors: 3 Anxiety: 2 Agitation: 2 Paroxysmal Sweats: 2 Orientation: 0-Oriented Tacttile Disturbances: 0-None Auditory Disturbances: 0-None Visual Disturbances: 0-None Headache: 0-None Present CIWA-Ar Total Score: 9 BHS Progress Note (SOAP) Subjective: sweats agitation Objective: 07/08/19 10:56 Vital Signs Temperature 97.9 F 07/08/19 05:20 Pulse Rate 70 07/08/19 05:20 Respiratory Rate 20 07/08/19 05:20 Blood Pressure 125/78 07/08/19 05:20 O2 Sat by Pulse Oximetry (%) Laboratory Tests 07/07/19 07/07/19 07/07/19 08:00 08:00 08:00 WBC 6.6 RBC 4.79 Hgb 12.0 Hct 34.7 L D MCV 72.5 L MCH 25.0 L MCHC 34.5 RDW 17.3 H Plt Count 235 MPV 9.4 Sodium 139 Potassium 3.9 Chloride 104 Carbon Dioxide 31 Anion Gap 4 L BUN 10.2 Creatinine 0.9 Est GFR (CKD-EPI)AfAm 117.47 Est GFR (CKD-EPI)NonAf 101.35 Random Glucose 76 Calcium 8.5 Total Bilirubin 0.7 AST 35 ALT 69 H Alkaline Phosphatase 69 Total Protein 6.1 L Albumin 3.2 L RPR Titer Nonreactive aaox3 ambulating no acute distress Assessment: 07/08/19 10:57 withdrawal sx Plan: continue detox
[2019-07-08] MEDS: TOLNAFTATE 1% CREAM 15 GM TUBE TP SCH ×2 (11:04→22:18)
[2019-07-08] MEDS: THIAMINE HCL 100 MG TABLET (FP) PO SCH (22:18)
[2019-07-08] MEDS: MELATONIN 5 MG TABLETS PO PRN (22:18)
[2019-07-09] MEDS ORDERED: chlordiazePOXIDE HCL 10 MG CAPSULE PO PRN
[2019-07-09] MEDS: chlordiazePOXIDE HCL 10 MG CAPSULE PO SCH ×3 (07:04→22:57)
[2019-07-09] MEDS: PRENATAL VITAMINS W/ FOLIC ACID TABLET (FP) PO SCH (09:45)
[2019-07-09] MEDS: TOLNAFTATE 1% CREAM 15 GM TUBE TP SCH ×2 (15:24→23:03)
[2019-07-09] MEDS: THIAMINE HCL 100 MG TABLET (FP) PO SCH (23:02)
[2019-07-10] MEDS ORDERED: chlordiazePOXIDE HCL 10 MG CAPSULE PO ONE (05:00)
--- NOTE | 2019-07-10 09:39 | DS ---
[facility] Detox Discharge Summary Admission Date: 07/06/19 Discharge Date: 07/10/19 - History Present History: Alcohol Dependence, Pcp Dependence - Physical Exam Results Vital Signs: Vital Signs Temperature 97.9 F 07/10/19 08:10 Pulse Rate 76 07/10/19 08:10 Respiratory Rate 18 07/10/19 08:10 Blood Pressure 121/65 07/10/19 08:10 O2 Sat by Pulse Oximetry (%) Pertinent Admission Physical Exam Findings: Vital Signs Temperature 97.9 F 07/10/19 08:10 Pulse Rate 76 07/10/19 08:10 Respiratory Rate 18 07/10/19 08:10 Blood Pressure 121/65 07/10/19 08:10 O2 Sat by Pulse Oximetry (%) Laboratory Tests 07/07/19 07/07/19 07/07/19 08:00 08:00 08:00 WBC 6.6 RBC 4.79 Hgb 12.0 Hct 34.7 L D MCV 72.5 L MCH 25.0 L MCHC 34.5 RDW 17.3 H Plt Count 235 MPV 9.4 Sodium 139 Potassium 3.9 Chloride 104 Carbon Dioxide 31 Anion Gap 4 L BUN 10.2 Creatinine 0.9 Est GFR (CKD-EPI)AfAm 117.47 Est GFR (CKD-EPI)NonAf 101.35 Random Glucose 76 Calcium 8.5 Total Bilirubin 0.7 AST 35 ALT 69 H Alkaline Phosphatase 69 Total Protein 6.1 L Albumin 3.2 L RPR Titer Nonreactive aaox3 ambulating no acute distress - Treatment Hospital Course: Detox Protocol Followed, Detoxed Safely, Responded well, Discharged Condition Good, Rehab Referral Accepted Patient has Accepted a Rehab Referral to: pt referred to outpatient rehab - Medication Discharge Medications: Ambulatory Orders NK [No Known Home Medication] 03/21/16 - Diagnosis (1) Alcohol dependence with uncomplicated withdrawal Current Visit: Yes Status: Chronic (2) Hypertension Current Visit: Yes Status: Chronic Qualifiers: Hypertension type: essential hypertension Qualified Code(s): I10 - Essential (primary) hypertension (3) Obesity Current Visit: Yes Status: Chronic Qualifiers: Obesity type: due to excess calories Body mass index: BMI 34.0-34.9 (4) Osteoarthritis Current Visit: Yes Status: Chronic Qualifiers: Osteoarthritis location: knee Osteoarthritis type: primary Laterality: bilateral Qualified Code(s): M17.0 - Bilateral primary osteoarthritis of knee (5) PCP (phencyclidine) abuse Current Visit: Yes Status: Chronic (6) Substance-induced sleep disorder Current Visit: No Status: Acute (7) ADHD (attention deficit hyperactivity disorder) Current Visit: No Status: Chronic (8) History of umbilical hernia repair Current Visit: No Status: Chronic (9) History of tracheostomy Current Visit: No Status: Suspected (10) Substance induced mood disorder Current Visit: No Status: Suspected - AMA Did Patient Leave Against Medical Advice: No
[2019-07-10] MEDS: PRENATAL VITAMINS W/ FOLIC ACID TABLET (FP) PO SCH (10:46)
[2019-07-10 11:20] VITALS: BP 121/68; PULSE 91; TEMP 97.5
== END 2019-07-10 11:44 | disposition home or self-care (01) | DRG 775 ==
LOC: YASAS 08:43 → Y6N 10:17
PROVIDERS: ADMIT Allergy & Immunology; ATTEND Allergy & Immunology
PROC: HZ2ZZZZ Detoxification Services for Substance Abuse Treatment (ICD-10-PCS; principal; 2019-07-06)
DX: F10.230 Alcohol dependence with withdrawal, uncomplicated (principal); F16.10 Hallucinogen abuse, uncomplicated; F19.282 Other psychoactive substance dependence with psychoactive substance-induced sleep disorder; F19.24 Other psychoactive substance dependence with psychoactive substance-induced mood disorder; F90.9 Attention-deficit hyperactivity disorder, unspecified type; G40.509 Epileptic seizures related to external causes, not intractable, without status epilepticus; I10 Essential (primary) hypertension; M17.0 Bilateral primary osteoarthritis of knee; E66.9 Obesity, unspecified; Z68.34 Body mass index [BMI] 34.0-34.9, adult; Z98.890 Other specified postprocedural states
CPT/HCPCS: 36415; 80053; 85027; 86593

== ENCOUNTER 2019-07-29 21:56 | Inpatient (IN) | payer OTHER ==
[2019-07-29 23:58] VITALS: BMI 34.0
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
[2019-07-30] MEDS ORDERED: chlordiazePOXIDE HCL 25 MG CAPSULE PO PRN (02:10)
[2019-07-30] MEDS ORDERED: MENTHOL/PHENOL 1 EACH UD MM PRN (02:10)
[2019-07-30] MEDS ORDERED: P-EPHED 60MG/TRIPROLIDI 2.5MG TABLET PO PRN (02:10)
[2019-07-30] MEDS ORDERED: ACETAMINOPHEN 325 MG TABLET (FP) PO PRN ×2 (02:10)
[2019-07-30] MEDS ORDERED: MAGNESIUM HYDROX 2400MG/30ML ORAL SUSPENSION 30 ML CUP PO PRN (02:10)
[2019-07-30] MEDS ORDERED: MAGNESIUM CITRATE 300 ML BOTTLE PO PRN (02:10)
[2019-07-30] MEDS ORDERED: MAG HYDROX/AL HYDROX/SIMETH 30 ML UNIT-DOSE CUP PO PRN (02:10)
[2019-07-30] MEDS ORDERED: ONDANSETRON *ODT* 4 MG TABLET SL PRN (02:10)
[2019-07-30] MEDS ORDERED: DICYCLOMINE HCL 10 MG CAPSULE PO PRN (02:10)
[2019-07-30] MEDS ORDERED: BISMUTH SUBSALICYLATE 524 MG/30 ML UD PO PRN (02:10)
[2019-07-30] MEDS: METHOCARBAMOL 500 MG TABLET PO PRN ×3 (03:25→18:18)
[2019-07-30] MEDS: IBUPROFEN 400 MG TABLET (FP) PO PRN (03:25)
[2019-07-30] MEDS: chlordiazePOXIDE HCL 25 MG CAPSULE PO SCH ×4 (05:35→22:37)
[2019-07-30] MEDS: PRENATAL VITAMINS W/ FOLIC ACID TABLET (FP) PO SCH (10:14)
--- NOTE | 2019-07-30 11:00 | PN ---
[facility] CIWA - CIWA Score Nausea/Vomitin-Mild Nausea/No Vomiting Muscle Tremors: 3 Anxiety: 2 Agitation: 1-Slight > Activity Paroxysmal Sweats: 1-Minimal Palms Moist Orientation: 0-Oriented Tacttile Disturbances: 0-None Auditory Disturbances: 0-None Visual Disturbances: 1-Very Mild Sensitivity Headache: 1-Very Mild CIWA-Ar Total Score: 10 B[facility] Progress Note (SOAP) Subjective: 48 years old male admitted on 07/30/19 for alcohol withdrawal sx management treating with librium detox regiment doing ok today feeling tired resting in bed encourage the patient to discuss current relapse event Objective: 07/30/19 11:00 Vital Signs Temperature 96.8 F L 07/30/19 08:31 Pulse Rate 82 07/30/19 08:31 Respiratory Rate 18 07/30/19 08:31 Blood Pressure 121/79 07/30/19 08:31 O2 Sat by Pulse Oximetry (%) 07/30/19 11:02 lab see 07/07/19 result Assessment: 07/30/19 11:02 alcohol withdrawal Plan: librium regiment
[2019-07-30] MEDS: CLOTRIMAZOLE 1% CREAM 15 GM TUBE TP SCH ×2 (14:24→22:58)
[2019-07-30 18:22] LABS: PH,URINE 5.5 (5.0-8.0); URINE APPEARANCE CLEAR; URINE BILIRUBIN NEGATIVE (NEGATIVE); URINE COLOR YELLOW; URINE GLUCOSE (UA) NEGATIVE (NEGATIVE); URINE KETONE NEGATIVE (NEGATIVE); URINE LEUK ESTERASE NEGATIVE (NEGATIVE); URINE NITRITE NEGATIVE (NEGATIVE); URINE PROTEIN NEGATIVE (NEGATIVE)
[2019-07-30] MEDS: THIAMINE HCL 100 MG TABLET (FP) PO SCH (22:36)
[2019-07-30] MEDS: MELATONIN 5 MG TABLETS PO PRN (22:37)
[2019-07-31] MEDS: chlordiazePOXIDE HCL 25 MG CAPSULE PO SCH ×4 (05:36→22:12)
[2019-07-31] MEDS: IBUPROFEN 400 MG TABLET (FP) PO PRN ×3 (05:38→16:47)
[2019-07-31] MEDS: guaiFENesin 200 MG/10 ML 10 ML UNIT-DOSE CUPS PO PRN (05:39)
[2019-07-31] MEDS: METHOCARBAMOL 500 MG TABLET PO PRN (05:39)
[2019-07-31] MEDS: CLOTRIMAZOLE 1% CREAM 15 GM TUBE TP SCH ×3 (05:56→22:41)
[2019-07-31] MEDS: PRENATAL VITAMINS W/ FOLIC ACID TABLET (FP) PO SCH (10:41)
--- NOTE | 2019-07-31 13:12 | PN ---
S CIWA - CIWA Score Nausea/Vomitin-No Nausea/No Vomiting Muscle Tremors: 2 Anxiety: 2 Agitation: 1-Slight > Activity Paroxysmal Sweats: 1-Minimal Palms Moist Orientation: 0-Oriented Tacttile Disturbances: 0-None Auditory Disturbances: 0-None Visual Disturbances: 0-None Headache: 0-None Present CIWA-Ar Total Score: 6 BHS Progress Note (SOAP) Subjective: 48 years old male admitted on 07/30/19 for alcohol withdrawal sx management treating with libriuim detox regiment requests to be seen by a dancer or choreographer reports chronic fungal toes clotrimazole cream apply Objective: 07/31/19 13:12 Vital Signs Temperature 97.2 F L 07/31/19 08:57 Pulse Rate 90 07/31/19 08:57 Respiratory Rate 18 07/31/19 08:57 Blood Pressure 124/79 07/31/19 08:57 O2 Sat by Pulse Oximetry (%) Laboratory Last Values Urine Color Yellow 07/30/19 12:40 Urine Appearance Clear 07/30/19 12:40 Urine pH 5.5 (5.0-8.0) 07/30/19 12:40 Ur Specific [place] 1.032 (1.010-1.035) 07/30/19 12:40 Urine Protein Negative (NEGATIVE) 07/30/19 12:40 Urine Glucose (UA) Negative (NEGATIVE) 07/30/19 12:40 Urine Ketones Negative (NEGATIVE) 07/30/19 12:40 Urine Blood Negative (NEGATIVE) 07/30/19 12:40 Urine Nitrite Negative (NEGATIVE) 07/30/19 12:40 Urine Bilirubin Negative (NEGATIVE) 07/30/19 12:40 Urine Urobilinogen 1.0 mg/dL (0.2-1.0) 07/30/19 12:40 Ur Leukocyte Esterase Negative (NEGATIVE) 07/30/19 12:40 HIV 1&2 Antibody Screen Negative 07/30/19 06:00 HIV P24 Antigen Negative 07/30/19 06:00 lab noted lab seen 07/07/19 report Assessment: 07/31/19 13:12 alcohol withdrawal Plan: librium regiment
[2019-07-31] MEDS: MELATONIN 5 MG TABLETS PO PRN (22:12)
[2019-07-31] MEDS: THIAMINE HCL 100 MG TABLET (FP) PO SCH (22:12)
[2019-08-01] MEDS ORDERED: chlordiazePOXIDE HCL 10 MG CAPSULE PO PRN
[2019-08-01] MEDS: chlordiazePOXIDE HCL 10 MG CAPSULE PO SCH ×4 (06:05→22:43)
[2019-08-01] MEDS: guaiFENesin 200 MG/10 ML 10 ML UNIT-DOSE CUPS PO PRN (06:07)
[2019-08-01] MEDS: CLOTRIMAZOLE 1% CREAM 15 GM TUBE TP SCH ×3 (06:25→22:43)
[2019-08-01] MEDS: IBUPROFEN 400 MG TABLET (FP) PO PRN (06:25)
[2019-08-01] MEDS: PRENATAL VITAMINS W/ FOLIC ACID TABLET (FP) PO SCH (10:27)
--- NOTE | 2019-08-01 14:27 | PN ---
S CIWA - CIWA Score Nausea/Vomitin-Mild Nausea/No Vomiting Muscle Tremors: 1-None Visible, but [place] Anxiety: 1-Mildly Anxious Agitation: 1-Slight > Activity Paroxysmal Sweats: No Perspiration Orientation: 0-Oriented Tacttile Disturbances: 1-Very Mild Itch/Numbness Auditory Disturbances: 0-None Visual Disturbances: 0-None Headache: 1-Very Mild CIWA-Ar Total Score: 6 BHS Progress Note (SOAP) Subjective: alert,irritable,interrupted sleep Objective: 08/01/19 14:27 Vital Signs Temperature 97.1 F L 08/01/19 08:40 Pulse Rate 84 08/01/19 08:40 Respiratory Rate 20 08/01/19 08:40 Blood Pressure 125/78 08/01/19 08:40 O2 Sat by Pulse Oximetry (%) Assessment: 08/01/19 14:27 withdrawal symptom Plan: continue detox librium regimen,had been seen by hog trader,no ensure needed
[2019-08-01] MEDS: THIAMINE HCL 100 MG TABLET (FP) PO SCH (22:43)
[2019-08-01] MEDS: MELATONIN 5 MG TABLETS PO PRN (22:44)
[2019-08-02] MEDS: chlordiazePOXIDE HCL 10 MG CAPSULE PO SCH ×2 (05:12→20:04)
[2019-08-02] MEDS: CLOTRIMAZOLE 1% CREAM 15 GM TUBE TP SCH ×3 (05:13→22:25)
[2019-08-02] MEDS: guaiFENesin 200 MG/10 ML 10 ML UNIT-DOSE CUPS PO PRN (05:15)
[2019-08-02] MEDS: PRENATAL VITAMINS W/ FOLIC ACID TABLET (FP) PO SCH (11:23)
--- NOTE | 2019-08-02 12:59 | PN ---
S CIWA - CIWA Score Nausea/Vomitin-No Nausea/No Vomiting Muscle Tremors: None Anxiety: 2 Agitation: 0-Normal Activity Paroxysmal Sweats: 2 Orientation: 0-Oriented Tacttile Disturbances: 0-None Auditory Disturbances: 0-None Visual Disturbances: 0-None Headache: 0-None Present CIWA-Ar Total Score: 4 BHS Progress Note (SOAP) Subjective: c/o mild withdrawal symptoms. Objective: 08/02/19 12:47 Vital Signs 08/02/19 08/02/19 06:44 08:41 Temperature 97.0 F L 97.9 F Pulse Rate 76 75 Respiratory 18 18 Rate Blood Pressure 131/84 119/79 Assessment: 08/02/19 12:48 AOX 3, in no respiratory distress. Full ROM, ambulating in the unit. Mild Withdrawal symptoms. For d/c tomorrow. 08/02/19 13:02 Plan: continue detox. D/C in AM.
[2019-08-02] MEDS: IBUPROFEN 400 MG TABLET (FP) PO PRN (14:38)
[2019-08-02] MEDS: MELATONIN 5 MG TABLETS PO PRN (22:25)
[2019-08-02] MEDS: THIAMINE HCL 100 MG TABLET (FP) PO SCH (22:25)
[2019-08-03] MEDS ORDERED: chlordiazePOXIDE HCL 10 MG CAPSULE PO ONE (05:00)
[2019-08-03] MEDS: CLOTRIMAZOLE 1% CREAM 15 GM TUBE TP SCH (06:55)
[2019-08-03 07:10] VITALS: BP 123/75; PULSE 73; TEMP 97.4
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
[2019-08-03] MEDS: PRENATAL VITAMINS W/ FOLIC ACID TABLET (FP) PO SCH (10:53)
== END 2019-08-03 12:21 | disposition home or self-care (01) | DRG 775 ==
LOC: YASAS 21:56 → Y3N 07-30 02:17
PROVIDERS: ADMIT Allergy & Immunology; ATTEND Allergy & Immunology
PROC: HZ2ZZZZ Detoxification Services for Substance Abuse Treatment (ICD-10-PCS; principal; 2019-07-30)
DX: F10.230 Alcohol dependence with withdrawal, uncomplicated (principal); F16.10 Hallucinogen abuse, uncomplicated; F19.282 Other psychoactive substance dependence with psychoactive substance-induced sleep disorder; F19.24 Other psychoactive substance dependence with psychoactive substance-induced mood disorder; I10 Essential (primary) hypertension; E66.9 Obesity, unspecified; Z68.34 Body mass index [BMI] 34.0-34.9, adult; Z86.69 Personal history of other diseases of the nervous system and sense organs; Z87.828 Personal history of other (healed) physical injury and trauma; Z91.19 Patient's noncompliance with other medical treatment and regimen
CPT/HCPCS: 36415; 81003; 87389

== ENCOUNTER 2020-02-09 19:50 | Inpatient (IN) | payer OTHER ==
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
[2020-02-09] MEDS ORDERED: ACETAMINOPHEN 325 MG TABLET (FP) PO PRN ×2 (22:49)
[2020-02-09] MEDS ORDERED: MELATONIN 5 MG TABLETS PO PRN (22:49)
[2020-02-09] MEDS ORDERED: diazePAM 5 MG TABLET PO PRN (22:49)
[2020-02-09] MEDS ORDERED: NICOTINE POLACRILEX 2 MG GUM BUC PRN (22:49)
[2020-02-09] MEDS ORDERED: IBUPROFEN 400 MG TABLET (FP) PO PRN (22:49)
[2020-02-09] MEDS ORDERED: MAGNESIUM CITRATE 300 ML BOTTLE PO PRN (22:49)
[2020-02-09] MEDS ORDERED: hydrOXYzine PAMOATE 25 MG CAPSULE (FP) PO PRN (22:49)
[2020-02-09] MEDS ORDERED: MENTHOL/PHENOL 1 EACH UD MM PRN (22:49)
[2020-02-09] MEDS ORDERED: METHOCARBAMOL 500 MG TABLET PO PRN (22:49)
[2020-02-09] MEDS ORDERED: BISMUTH SUBSALICYLATE 524 MG/30 ML UD PO PRN (22:49)
[2020-02-09] MEDS ORDERED: MAG HYDROX/AL HYDROX/SIMETH 30 ML UNIT-DOSE CUP PO PRN (22:49)
[2020-02-09] MEDS ORDERED: MAGNESIUM HYDROX 2400MG/30ML ORAL SUSPENSION 30 ML CUP PO PRN (22:49)
[2020-02-09 23:10] VITALS: BMI 30.8
[2020-02-10] MEDS: diazePAM 5 MG TABLET PO SCH ×3 (00:39→13:28)
[2020-02-10] MEDS: BACITRACIN 15 GM TUBE TOPICAL OINTMENT TP SCH ×3 (00:40→23:37)
[2020-02-10] MEDS: PRENATAL VITAMINS W/ FOLIC ACID TABLET (FP) PO SCH (11:01)
--- NOTE | 2020-02-10 12:32 | PN ---
S CIWA - CIWA Score Nausea/Vomitin-Mild Nausea/No Vomiting Muscle Tremors: 2 Anxiety: 2 Agitation: 1-Slight > Activity Paroxysmal Sweats: No Perspiration Orientation: 0-Oriented Tacttile Disturbances: 1-Very Mild Itch/Numbness Auditory Disturbances: 0-None Visual Disturbances: 0-None Headache: 1-Very Mild CIWA-Ar Total Score: 8 BHS Progress Note (SOAP) Subjective: alert,irritable,anxious,interrupted sleep,aching pain Objective: 02/10/20 12:27 Vital Signs Temperature 97.7 F 02/10/20 09:00 Pulse Rate 85 02/10/20 09:00 Respiratory Rate 19 02/10/20 09:00 Blood Pressure 125/69 02/10/20 09:00 O2 Sat by Pulse Oximetry (%) 99 02/10/20 09:00 Assessment: 02/10/20 12:29 withdrawal symptom Plan: continue detox valium regimen,patient has tomas wrapping in left forearm healed abrasion form injury 2 weeks ago,start having problem with compliance issue,
--- NOTE | 2020-02-10 15:13 | PN ---
[facility] Progress Note Note: patient would like regimen to be changed to librium instead of valium,seen by Thao Thomas patient educator supervior agrred to comply with rule and regulation requested for sneakers
[2020-02-10] MEDS: chlordiazePOXIDE HCL 25 MG CAPSULE PO PRN (17:37)
[2020-02-10] MEDS: chlordiazePOXIDE HCL 25 MG CAPSULE PO SCH ×2 (18:34→23:37)
[2020-02-10] MEDS: THIAMINE HCL 100 MG TABLET (FP) PO SCH (23:37)
[2020-02-11] MEDS: chlordiazePOXIDE HCL 25 MG CAPSULE PO PRN (01:51)
[2020-02-11] MEDS ORDERED: diazePAM 5 MG TABLET PO ONE (06:00)
[2020-02-11] MEDS: chlordiazePOXIDE HCL 25 MG CAPSULE PO SCH ×4 (06:22→22:19)
[2020-02-11] MEDS: PRENATAL VITAMINS W/ FOLIC ACID TABLET (FP) PO SCH (10:19)
[2020-02-11 12:13] LABS: HEMATOCRIT 40.5 % (35.4-49); HEMOGLOBIN 13.9 GM/dL (11.7-16.9); MCH 24.4 pg (25.7-33.7); MCHC 34.2 g/dl (32.0-35.9); MEAN CELL VOLUME 71.3 fl (80-96); MEAN PLT VOLUME 9.2 fl (7.5-11.1); PLATELET COUNT 283 K/MM3 (134-434); RBC 5.69 M/mm3 (4.00-5.60); RDW 18.5 % (11.9-15.9); WHITE BLOOD COUNT 8.1 K/mm3 (4.0-10.0)
[2020-02-11] MEDS: BACITRACIN 15 GM TUBE TOPICAL OINTMENT TP SCH (12:14)
[2020-02-11 12:23] LABS: ALBUMIN 3.8 g/dl (3.4-5.0); BILIRUBIN,TOTAL 1.3 mg/dL (0.2-1); BLOOD UREA NITROGEN 11.7 mg/dL (7-18); CALCIUM 8.7 mg/dL (8.5-10.1); CREATININE 0.8 mg/dL (0.55-1.3); POTASSIUM 4.3 mmol/L (3.5-5.1)
--- NOTE | 2020-02-11 12:50 | PN ---
S CIWA - CIWA Score Nausea/Vomitin-Mild Nausea/No Vomiting Muscle Tremors: 2 Anxiety: 2 Agitation: 1-Slight > Activity Paroxysmal Sweats: No Perspiration Orientation: 0-Oriented Tacttile Disturbances: 1-Very Mild Itch/Numbness Auditory Disturbances: 0-None Visual Disturbances: 0-None Headache: 1-Very Mild CIWA-Ar Total Score: 8 B[facility] Progress Note (SOAP) Subjective: alert,irritable,anxious,interrupted sleep,aching pain Objective: 02/11/20 12:49 Laboratory Last Values WBC 8.1 K/mm3 (4.0-10.0) 02/11/20 08:30 RBC 5.69 M/mm3 (4.00-5.60) H 02/11/20 08:30 Hgb 13.9 GM/dL (11.7-16.9) 02/11/20 08:30 Hct 40.5 % (35.4-49) 02/11/20 08:30 MCV 71.3 fl (80-96) L 02/11/20 08:30 MCH 24.4 pg (25.7-33.7) L 02/11/20 08:30 MCHC 34.2 g/dl (32.0-35.9) 02/11/20 08:30 RDW 18.5 % (11.9-15.9) H 02/11/20 08:30 Plt Count 283 K/MM3 (134-434) D 02/11/20 08:30 MPV 9.2 fl (7.5-11.1) 02/11/20 08:30 Sodium 141 mmol/L (136-145) 02/11/20 08:30 Potassium 4.3 mmol/L (3.5-5.1) 02/11/20 08:30 Chloride 107 mmol/L (98-107) 02/11/20 08:30 Carbon Dioxide 28 mmol/L (21-32) 02/11/20 08:30 Anion Gap 6 MMOL/L (8-16) L 02/11/20 08:30 BUN 11.7 mg/dL (7-18) 02/11/20 08:30 Creatinine 0.8 mg/dL (0.55-1.3) 02/11/20 08:30 Est GFR (CKD-EPI)AfAm 122.43 02/11/20 08:30 Est GFR (CKD-EPI)NonAf 105.63 02/11/20 08:30 Random Glucose 81 mg/dL (74-106) 02/11/20 08:30 Calcium 8.7 mg/dL (8.5-10.1) 02/11/20 08:30 Total Bilirubin 1.3 mg/dL (0.2-1) H 02/11/20 08:30 AST 23 U/L (15-37) 02/11/20 08:30 ALT 39 U/L (13-61) 02/11/20 08:30 Alkaline Phosphatase 88 U/L (45-117) 02/11/20 08:30 Total Protein 7.0 g/dl (6.4-8.2) 02/11/20 08:30 Albumin 3.8 g/dl (3.4-5.0) 02/11/20 08:30 COVID-19 (SA[facility]ANNA) Not detected (Not Detected) 02/09/20 23:44 Assessment: 02/11/20 12:49 withdrawal symptom Plan: continue detox lirium regimen,sales training representative evaluation for nutritional evaluation
[2020-02-11] MEDS: THIAMINE HCL 100 MG TABLET (FP) PO SCH (22:19)
[2020-02-11] MEDS: BACITRACIN 0.9 GM PACKET TP SCH (22:22)
[2020-02-12] MEDS: chlordiazePOXIDE HCL 25 MG CAPSULE PO SCH ×4 (05:49→22:42)
[2020-02-12] MEDS: PRENATAL VITAMINS W/ FOLIC ACID TABLET (FP) PO SCH (10:28)
[2020-02-12] MEDS: BACITRACIN 0.9 GM PACKET TP SCH ×2 (10:28→22:43)
--- NOTE | 2020-02-12 15:14 | PN ---
S CIWA - CIWA Score Nausea/Vomitin-No Nausea/No Vomiting Muscle Tremors: 2 Anxiety: 2 Agitation: 1-Slight > Activity Paroxysmal Sweats: No Perspiration Orientation: 0-Oriented Tacttile Disturbances: 0-None Auditory Disturbances: 0-None Visual Disturbances: 0-None Headache: 1-Very Mild CIWA-Ar Total Score: 6 S Progress Note (SOAP) Subjective: alert,irritable,anxious,interrupted sleep,aching pain Objective: 02/12/20 15:12 Vital Signs Temperature 97.5 F L 02/12/20 08:38 Pulse Rate 103 H 02/12/20 08:38 Respiratory Rate 18 02/12/20 08:38 Blood Pressure 134/63 02/12/20 08:38 O2 Sat by Pulse Oximetry (%) 99 02/12/20 05:20 02/12/20 15:12 Laboratory Last Values WBC 8.1 K/mm3 (4.0-10.0) 02/11/20 08:30 RBC 5.69 M/mm3 (4.00-5.60) H 02/11/20 08:30 Hgb 13.9 GM/dL (11.7-16.9) 02/11/20 08:30 Hct 40.5 % (35.4-49) 02/11/20 08:30 MCV 71.3 fl (80-96) L 02/11/20 08:30 MCH 24.4 pg (25.7-33.7) L 02/11/20 08:30 MCHC 34.2 g/dl (32.0-35.9) 02/11/20 08:30 RDW 18.5 % (11.9-15.9) H 02/11/20 08:30 Plt Count 283 K/MM3 (134-434) D 02/11/20 08:30 MPV 9.2 fl (7.5-11.1) 02/11/20 08:30 Sodium 141 mmol/L (136-145) 02/11/20 08:30 Potassium 4.3 mmol/L (3.5-5.1) 02/11/20 08:30 Chloride 107 mmol/L (98-107) 02/11/20 08:30 Carbon Dioxide 28 mmol/L (21-32) 02/11/20 08:30 Anion Gap 6 MMOL/L (8-16) L 02/11/20 08:30 BUN 11.7 mg/dL (7-18) 02/11/20 08:30 Creatinine 0.8 mg/dL (0.55-1.3) 02/11/20 08:30 Est GFR (CKD-EPI)AfAm 122.43 02/11/20 08:30 Est GFR (CKD-EPI)NonAf 105.63 02/11/20 08:30 Random Glucose 81 mg/dL (74-106) 02/11/20 08:30 Calcium 8.7 mg/dL (8.5-10.1) 02/11/20 08:30 Total Bilirubin 1.3 mg/dL (0.2-1) H 02/11/20 08:30 AST 23 U/L (15-37) 02/11/20 08:30 ALT 39 U/L (13-61) 02/11/20 08:30 Alkaline Phosphatase 88 U/L (45-117) 02/11/20 08:30 Total Protein 7.0 g/dl (6.4-8.2) 02/11/20 08:30 Albumin 3.8 g/dl (3.4-5.0) 02/11/20 08:30 Syphilis Serology Non-reactive (NONREACTIVE) 02/11/20 08:30 COVID-19 ([facility]) Not detected (Not Detected) 02/09/20 23:44 Assessment: 02/12/20 15:13 withdrawal symptom Plan: continue detox librium regimen
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
[2020-02-12] MEDS: THIAMINE HCL 100 MG TABLET (FP) PO SCH (22:43)
[2020-02-13] MEDS ORDERED: chlordiazePOXIDE HCL 10 MG CAPSULE PO PRN
[2020-02-13] MEDS ORDERED: chlordiazePOXIDE HCL 10 MG CAPSULE PO SCH (05:00)
[2020-02-13 07:17] VITALS: BP 145/74; PULSE 86; TEMP 97.1
[2020-02-13] MEDS: PRENATAL VITAMINS W/ FOLIC ACID TABLET (FP) PO SCH (09:50)
[2020-02-13] MEDS: BACITRACIN 0.9 GM PACKET TP SCH (09:51)
--- NOTE | 2020-02-13 10:54 | PN ---
[facility] CIWA - CIWA Score Nausea/Vomitin-No Nausea/No Vomiting Muscle Tremors: None Anxiety: 1-Mildly Anxious Agitation: 0-Normal Activity Paroxysmal Sweats: No Perspiration Orientation: 0-Oriented Tacttile Disturbances: 0-None Auditory Disturbances: 0-None Visual Disturbances: 0-None Headache: 0-None Present CIWA-Ar Total Score: 1 S Progress Note (SOAP) Subjective: alert,no complaint Objective: 02/13/20 10:52 Vital Signs Temperature 97.1 F L 02/13/20 05:39 Pulse Rate 86 02/13/20 05:39 Respiratory Rate 18 02/13/20 05:39 Blood Pressure 145/74 02/13/20 05:39 O2 Sat by Pulse Oximetry (%) 96 02/13/20 05:39 Assessment: 02/13/20 10:53 detox completed,no withdrawal symptom Plan: stable for discharge today,follow up with after care program as arrangement
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
[2020-02-14] MEDS ORDERED: chlordiazePOXIDE HCL 10 MG CAPSULE PO SCH (05:00)
[2020-02-15] MEDS ORDERED: chlordiazePOXIDE HCL 10 MG CAPSULE PO ONE (05:00)
== END 2020-02-13 10:05 | disposition home or self-care (01) | DRG 775 ==
LOC: YASAS 19:50 → Y6N 23:22
PROVIDERS: ADMIT Allergy & Immunology; ATTEND Allergy & Immunology
PROC: HZ2ZZZZ Detoxification Services for Substance Abuse Treatment (ICD-10-PCS; principal; 2020-02-09)
DX: F10.230 Alcohol dependence with withdrawal, uncomplicated (principal); E66.9 Obesity, unspecified; Z68.30 Body mass index [BMI] 30.0-30.9, adult; Z98.890 Other specified postprocedural states; Z87.828 Personal history of other (healed) physical injury and trauma; Z59.0 Homelessness; Z91.048 Other nonmedicinal substance allergy status
CPT/HCPCS: 36415; 80053; 85027; 86780; U0003

== ENCOUNTER 2021-04-03 00:35 | Inpatient (IN) | payer OTHER ==
[2021-04-03 01:56] VITALS: BMI 33.7
[2021-04-03] MEDS ORDERED: MAGNESIUM CITRATE 300 ML BOTTLE PO PRN (09:23)
[2021-04-03] MEDS ORDERED: IBUPROFEN 400 MG TABLET (FP) PO PRN (09:23)
[2021-04-03] MEDS ORDERED: NICOTINE 10 MG CARTRIDGE (INHALER) IH PRN (09:23)
[2021-04-03] MEDS ORDERED: ACETAMINOPHEN 325 MG TABLET (FP) PO PRN ×2 (09:23)
[2021-04-03] MEDS ORDERED: MAG HYDROX/AL HYDROX/SIMETH 30 ML UNIT-DOSE CUP PO PRN (09:23)
[2021-04-03] MEDS ORDERED: ONDANSETRON *ODT* 4 MG TABLET SL PRN (09:23)
[2021-04-03] MEDS ORDERED: BISMUTH SUBSALICYLATE 524 MG/30 ML PO PRN (09:23)
[2021-04-03] MEDS ORDERED: diazePAM 5 MG TABLET PO PRN (09:23)
[2021-04-03] MEDS ORDERED: MENTHOL/PHENOL 1 EACH UD MM PRN (09:23)
[2021-04-03] MEDS ORDERED: MAGNESIUM HYDROX 2400MG/30ML ORAL SUSPENSION 30 ML CUP PO PRN (09:23)
[2021-04-03] MEDS: METHOCARBAMOL 500 MG TABLET PO PRN (12:01)
[2021-04-03] MEDS: hydrOXYzine PAMOATE 25 MG CAPSULE (FP) PO SCH ×4 (12:01→23:47)
[2021-04-03] MEDS: diazePAM 5 MG TABLET PO SCH ×3 (12:01→22:21)
[2021-04-03] MEDS: PRENATAL VITAMINS W/ FOLIC ACID TABLET (FP) PO SCH (12:07)
[2021-04-03] MEDS: THIAMINE HCL 100 MG TABLET (FP) PO SCH (22:21)
[2021-04-03] MEDS: MELATONIN 5 MG TABLETS PO SCH (22:22)
[2021-04-04] MEDS: diazePAM 5 MG TABLET PO SCH ×4 (05:57→22:31)
[2021-04-04] MEDS: hydrOXYzine PAMOATE 25 MG CAPSULE (FP) PO SCH ×5 (05:57→22:30)
[2021-04-04 10:31] LABS: HEMATOCRIT 39.5 % (35.4-49); HEMOGLOBIN 13.9 GM/dL (11.7-16.9); MCHC 35.1 g/dl (32.0-35.9); MEAN CELL VOLUME 71.4 fl (80-96); PLATELET COUNT 301 10^3/uL (134-434); RBC 5.53 M/mm3 (4.00-5.60); RDW 17.5 % (11.9-15.9); WHITE BLOOD COUNT 6.4 K/mm3 (4.0-10.0)
[2021-04-04 10:36] LABS: CALCIUM 8.4 mg/dL (8.5-10.1)
[2021-04-04 10:37] LABS: ALBUMIN 3.4 g/dl (3.4-5.0); BLOOD UREA NITROGEN 13.2 mg/dL (7-18)
[2021-04-04 10:40] LABS: CREATININE 0.7 mg/dL (0.55-1.3)
[2021-04-04 10:42] LABS: BILIRUBIN,TOTAL 0.8 mg/dL (0.2-1); TOT PROT 7.1 g/dl (6.4-8.2)
[2021-04-04] MEDS: PRENATAL VITAMINS W/ FOLIC ACID TABLET (FP) PO SCH (10:50)
[2021-04-04] MEDS: CLOTRIMAZOLE 1% CREAM TP SCH (11:47)
[2021-04-04] MEDS: THIAMINE HCL 100 MG TABLET (FP) PO SCH (22:30)
[2021-04-04] MEDS: MELATONIN 5 MG TABLETS PO SCH (22:31)
[2021-04-05] MEDS: diazePAM 5 MG TABLET PO SCH ×3 (05:48→22:37)
[2021-04-05] MEDS: hydrOXYzine PAMOATE 25 MG CAPSULE (FP) PO SCH ×5 (05:48→22:37)
[2021-04-05] MEDS: PRENATAL VITAMINS W/ FOLIC ACID TABLET (FP) PO SCH (10:20)
[2021-04-05] MEDS: METHOCARBAMOL 500 MG TABLET PO PRN (10:22)
[2021-04-05] MEDS: CLOTRIMAZOLE 1% CREAM TP SCH (10:24)
[2021-04-05 11:12] LABS: PH,URINE 7.5 (5.0-8.0); URINE APPEARANCE CLEAR; URINE BILIRUBIN NEGATIVE (NEGATIVE); URINE COLOR YELLOW; URINE GLUCOSE (UA) NEGATIVE (NEGATIVE); URINE KETONE NEGATIVE (NEGATIVE); URINE LEUK ESTERASE NEGATIVE (NEGATIVE); URINE NITRITE NEGATIVE (NEGATIVE); URINE PROTEIN NEGATIVE (NEGATIVE)
[2021-04-05] MEDS: MELATONIN 5 MG TABLETS PO SCH (22:37)
[2021-04-05] MEDS: THIAMINE HCL 100 MG TABLET (FP) PO SCH (22:37)
[2021-04-06] MEDS: diazePAM 5 MG TABLET PO SCH ×2 (06:41→18:05)
[2021-04-06] MEDS: METHOCARBAMOL 500 MG TABLET PO PRN (06:42)
[2021-04-06] MEDS: hydrOXYzine PAMOATE 25 MG CAPSULE (FP) PO SCH ×5 (06:44→22:51)
[2021-04-06] MEDS: PRENATAL VITAMINS W/ FOLIC ACID TABLET (FP) PO SCH (11:10)
[2021-04-06] MEDS: CLOTRIMAZOLE 1% CREAM TP SCH (11:10)
[2021-04-06] MEDS ORDERED: METHYL SALICYLATE/MENTHOL OINT 30 GM TUBE TP PRN (16:03)
[2021-04-06] MEDS: MELATONIN 5 MG TABLETS PO SCH (22:51)
[2021-04-06] MEDS: THIAMINE HCL 100 MG TABLET (FP) PO SCH (22:51)
[2021-04-07] MEDS ORDERED: diazePAM 5 MG TABLET PO ONE (06:00)
[2021-04-07] MEDS: hydrOXYzine PAMOATE 25 MG CAPSULE (FP) PO SCH (06:50)
[2021-04-07 09:25] VITALS: BP 144/74; PULSE 95; TEMP 96
== END 2021-04-07 09:50 | disposition home or self-care (01) | DRG 775 ==
LOC: YASAS 00:35 → Y6N 09:54
PROVIDERS: ADMIT Allergy & Immunology; ATTEND Allergy & Immunology
PROC: HZ2ZZZZ Detoxification Services for Substance Abuse Treatment (ICD-10-PCS; principal; 2021-04-03)
DX: F10.230 Alcohol dependence with withdrawal, uncomplicated (principal); F13.230 Sedative, hypnotic or anxiolytic dependence with withdrawal, uncomplicated; F16.20 Hallucinogen dependence, uncomplicated; F17.210 Nicotine dependence, cigarettes, uncomplicated; M17.0 Bilateral primary osteoarthritis of knee; E66.9 Obesity, unspecified; Z68.33 Body mass index [BMI] 33.0-33.9, adult; Z98.890 Other specified postprocedural states
CPT/HCPCS: 36415; 80053; 81003; 85027; 86780; C9803; U0003; U0005

== ENCOUNTER 2021-04-27 22:16 | Inpatient (IN) | payer OTHER ==
[2021-04-27 23:03] VITALS: BMI 32.4
[2021-04-27] MEDS ORDERED: NICOTINE 10 MG CARTRIDGE (INHALER) IH PRN (23:04)
[2021-04-27] MEDS ORDERED: ACETAMINOPHEN 325 MG TABLET (FP) PO PRN ×2 (23:04)
[2021-04-27] MEDS ORDERED: hydrOXYzine PAMOATE 25 MG CAPSULE (FP) PO PRN (23:04)
[2021-04-27] MEDS ORDERED: MAGNESIUM HYDROX 2400MG/30ML ORAL SUSPENSION 30 ML CUP PO PRN (23:04)
[2021-04-27] MEDS ORDERED: MAG HYDROX/AL HYDROX/SIMETH 30 ML UNIT-DOSE CUP PO PRN (23:04)
[2021-04-27] MEDS ORDERED: ONDANSETRON *ODT* 4 MG TABLET SL PRN (23:04)
[2021-04-27] MEDS ORDERED: BISMUTH SUBSALICYLATE 524 MG/30 ML PO PRN (23:04)
[2021-04-27] MEDS ORDERED: MAGNESIUM CITRATE 300 ML BOTTLE PO PRN (23:04)
[2021-04-28] MEDS ORDERED: diazePAM 5 MG TABLET PO PRN (09:15)
[2021-04-28] MEDS: TOLNAFTATE 1% CREAM 15 GM TUBE TP SCH ×2 (10:16→22:19)
[2021-04-28] MEDS: PRENATAL VITAMINS W/ FOLIC ACID TABLET (FP) PO SCH (10:16)
[2021-04-28] MEDS: METHYL SALICYLATE/MENTHOL OINT 30 GM TUBE TP SCH ×2 (10:16→22:19)
[2021-04-28] MEDS: diazePAM 5 MG TABLET PO SCH ×3 (10:17→22:20)
[2021-04-28] MEDS: IBUPROFEN 400 MG TABLET (FP) PO PRN (18:09)
[2021-04-28] MEDS: MELATONIN 5 MG TABLETS PO SCH (22:18)
[2021-04-28] MEDS: THIAMINE HCL 100 MG TABLET (FP) PO SCH (22:19)
[2021-04-29] MEDS: diazePAM 5 MG TABLET PO SCH ×4 (06:09→22:47)
[2021-04-29] MEDS: METHYL SALICYLATE/MENTHOL OINT 30 GM TUBE TP SCH ×2 (10:27→22:48)
[2021-04-29] MEDS: TOLNAFTATE 1% CREAM 15 GM TUBE TP SCH ×2 (10:28→22:48)
[2021-04-29] MEDS: PRENATAL VITAMINS W/ FOLIC ACID TABLET (FP) PO SCH (10:28)
[2021-04-29 10:48] LABS: BASO % 0.6 % (0-2.0); EOS % 7.5 % (0-4.5); HEMATOCRIT 40.5 % (35.4-49); HEMOGLOBIN 14.1 GM/dL (11.7-16.9); LYMPH % 28.9 % (8-40); MCH 25.1 pg (25.7-33.7); MCHC 34.8 g/dl (32.0-35.9); MEAN CELL VOLUME 72.2 fl (80-96); MEAN PLT VOLUME 9.2 fl (7.5-11.1); MONO % 12.8 % (3.8-10.2); NEUT % 50.2 % (42.8-82.8); PLATELET COUNT 255 10^3/uL (134-434); RBC 5.61 M/mm3 (4.00-5.60); RDW 17.9 % (11.9-15.9); WHITE BLOOD COUNT 7.6 K/mm3 (4.0-10.0)
[2021-04-29 11:08] LABS: ALBUMIN 3.7 g/dl (3.4-5.0); CALCIUM 8.5 mg/dL (8.5-10.1)
[2021-04-29 11:12] LABS: CREATININE 0.9 mg/dL (0.55-1.3)
[2021-04-29 11:13] LABS: BILIRUBIN,TOTAL 1.1 mg/dL (0.2-1); TOT PROT 7.4 g/dl (6.4-8.2)
[2021-04-29 11:20] LABS: BLOOD UREA NITROGEN 13.6 mg/dL (7-18)
[2021-04-29 13:15] LABS: HIV INTERPRETATION NEGATIVE (NEGATIVE)
[2021-04-29] MEDS: THIAMINE HCL 100 MG TABLET (FP) PO SCH (22:47)
[2021-04-29] MEDS: MELATONIN 5 MG TABLETS PO SCH (22:48)
[2021-04-29] MEDS: METHOCARBAMOL 500 MG TABLET PO PRN (22:49)
[2021-04-29] MEDS: IBUPROFEN 400 MG TABLET (FP) PO PRN (22:57)
[2021-04-30] MEDS: diazePAM 5 MG TABLET PO SCH ×3 (05:55→22:15)
[2021-04-30] MEDS: IBUPROFEN 400 MG TABLET (FP) PO PRN ×2 (05:56→13:26)
[2021-04-30] MEDS: MENTHOL/PHENOL 1 EACH UD MM PRN (05:57)
[2021-04-30] MEDS: METHYL SALICYLATE/MENTHOL OINT 30 GM TUBE TP SCH ×2 (10:31→22:17)
[2021-04-30] MEDS: TOLNAFTATE 1% CREAM 15 GM TUBE TP SCH ×2 (10:31→22:17)
[2021-04-30] MEDS: PRENATAL VITAMINS W/ FOLIC ACID TABLET (FP) PO SCH (10:31)
[2021-04-30] MEDS: METHOCARBAMOL 500 MG TABLET PO PRN (10:37)
[2021-04-30] MEDS: MELATONIN 5 MG TABLETS PO SCH (22:15)
[2021-04-30] MEDS: THIAMINE HCL 100 MG TABLET (FP) PO SCH (22:15)
[2021-05-01] MEDS: IBUPROFEN 400 MG TABLET (FP) PO PRN ×2 (01:49→22:37)
[2021-05-01] MEDS: METHOCARBAMOL 500 MG TABLET PO PRN ×2 (01:49→22:37)
[2021-05-01] MEDS: diazePAM 5 MG TABLET PO SCH ×2 (06:07→17:20)
[2021-05-01] MEDS: MENTHOL/PHENOL 1 EACH UD MM PRN (06:10)
[2021-05-01] MEDS: PRENATAL VITAMINS W/ FOLIC ACID TABLET (FP) PO SCH (10:25)
[2021-05-01] MEDS: METHYL SALICYLATE/MENTHOL OINT 30 GM TUBE TP SCH ×2 (10:26→22:34)
[2021-05-01] MEDS: TOLNAFTATE 1% CREAM 15 GM TUBE TP SCH ×2 (10:26→23:08)
[2021-05-01] MEDS: MELATONIN 5 MG TABLETS PO SCH (22:34)
[2021-05-01] MEDS: THIAMINE HCL 100 MG TABLET (FP) PO SCH (22:34)
[2021-05-02] MEDS ORDERED: diazePAM 5 MG TABLET PO ONE (06:00)
[2021-05-02] MEDS: IBUPROFEN 400 MG TABLET (FP) PO PRN (06:32)
[2021-05-02] MEDS: METHOCARBAMOL 500 MG TABLET PO PRN (06:32)
[2021-05-02 09:29] VITALS: BP 159/96; PULSE 97; TEMP 97.7
[2021-05-02] MEDS: PRENATAL VITAMINS W/ FOLIC ACID TABLET (FP) PO SCH (10:23)
[2021-05-02] MEDS: METHYL SALICYLATE/MENTHOL OINT 30 GM TUBE TP SCH (10:23)
[2021-05-02] MEDS: TOLNAFTATE 1% CREAM 15 GM TUBE TP SCH (10:23)
== END 2021-05-02 10:18 | disposition home or self-care (01) | DRG 775 ==
LOC: YASAS 22:16 → Y3N 23:59 → UNDOADMIN 23:59 → Y3N 04-28 08:07
PROVIDERS: ADMIT Allergy & Immunology; ATTEND Allergy & Immunology
PROC: HZ2ZZZZ Detoxification Services for Substance Abuse Treatment (ICD-10-PCS; principal; 2021-04-27)
DX: F10.230 Alcohol dependence with withdrawal, uncomplicated (principal); F13.230 Sedative, hypnotic or anxiolytic dependence with withdrawal, uncomplicated; F16.20 Hallucinogen dependence, uncomplicated; F12.20 Cannabis dependence, uncomplicated; F17.210 Nicotine dependence, cigarettes, uncomplicated; M17.11 Unilateral primary osteoarthritis, right knee; R74.01 Elevation of levels of liver transaminase levels
CPT/HCPCS: 36415; 80053; 85025; 86780; 87389; C9803; U0003; U0005

== ENCOUNTER 2021-05-06 20:53 | Inpatient (IN) | payer OTHER ==
[2021-05-06] MEDS ORDERED: guaiFENesin 200 MG/10 ML 10 ML UNIT-DOSE CUPS PO PRN (21:47)
[2021-05-06] MEDS ORDERED: MAGNESIUM HYDROX 2400MG/30ML ORAL SUSPENSION 30 ML CUP PO PRN (21:47)
[2021-05-06] MEDS ORDERED: P-EPHED 60MG/TRIPROLIDI 2.5MG TABLET PO PRN (21:47)
[2021-05-06] MEDS ORDERED: MAGNESIUM CITRATE 300 ML BOTTLE PO PRN (21:47)
[2021-05-06] MEDS ORDERED: MENTHOL/PHENOL 1 EACH UD MM PRN (21:47)
[2021-05-06] MEDS ORDERED: NICOTINE 10 MG CARTRIDGE (INHALER) IH PRN (21:47)
[2021-05-06] MEDS ORDERED: ACETAMINOPHEN 325 MG TABLET (FP) PO PRN (21:47)
[2021-05-06] MEDS ORDERED: LOPERAMIDE HCL 2 MG CAPSULE PO PRN (21:47)
[2021-05-06] MEDS ORDERED: MAG HYDROX/AL HYDROX/SIMETH 30 ML UNIT-DOSE CUP PO PRN (21:47)
[2021-05-06 22:16] VITALS: BMI 34.5
[2021-05-07] MEDS: THIAMINE HCL 100 MG TABLET (FP) PO SCH ×2 (01:31→21:31)
[2021-05-07] MEDS: MELATONIN 5 MG TABLETS PO SCH ×2 (01:31→21:31)
[2021-05-07] MEDS: PRENATAL VITAMINS W/ FOLIC ACID TABLET (FP) PO SCH (10:46)
[2021-05-07] MEDS: TOLNAFTATE 1% CREAM 15 GM TUBE TP SCH ×2 (12:16→21:31)
[2021-05-07] MEDS: hydrOXYzine PAMOATE 25 MG CAPSULE (FP) PO PRN (21:31)
[2021-05-08] MEDS: TOLNAFTATE 1% CREAM 15 GM TUBE TP SCH ×2 (10:36→21:55)
[2021-05-08] MEDS: PRENATAL VITAMINS W/ FOLIC ACID TABLET (FP) PO SCH (10:36)
[2021-05-08] MEDS: hydrOXYzine PAMOATE 25 MG CAPSULE (FP) PO PRN ×2 (10:38→21:54)
[2021-05-08] MEDS: METHOCARBAMOL 500 MG TABLET PO PRN ×2 (14:34→21:54)
[2021-05-08] MEDS: METHYL SALICYLATE/MENTHOL OINT 30 GM TUBE TP SCH ×2 (14:35→21:55)
[2021-05-08] MEDS: MELATONIN 5 MG TABLETS PO SCH (21:54)
[2021-05-08] MEDS: THIAMINE HCL 100 MG TABLET (FP) PO SCH (21:54)
[2021-05-09] MEDS: PRENATAL VITAMINS W/ FOLIC ACID TABLET (FP) PO SCH (09:50)
[2021-05-09] MEDS: METHYL SALICYLATE/MENTHOL OINT 30 GM TUBE TP SCH ×2 (09:50→21:11)
[2021-05-09] MEDS: TOLNAFTATE 1% CREAM 15 GM TUBE TP SCH ×2 (09:51→21:11)
[2021-05-09] MEDS: METHOCARBAMOL 500 MG TABLET PO PRN ×2 (09:53→21:12)
[2021-05-09] MEDS: THIAMINE HCL 100 MG TABLET (FP) PO SCH (21:10)
[2021-05-09] MEDS: MELATONIN 5 MG TABLETS PO SCH (21:10)
[2021-05-09] MEDS: hydrOXYzine PAMOATE 25 MG CAPSULE (FP) PO PRN (21:12)
[2021-05-10] MEDS ORDERED: PT OWN MED DRAWER 7, Y5N ONE (08:20)
[2021-05-10] MEDS: METHYL SALICYLATE/MENTHOL OINT 30 GM TUBE TP SCH ×2 (09:27→21:19)
[2021-05-10] MEDS: TOLNAFTATE 1% CREAM 15 GM TUBE TP SCH ×2 (09:27→21:18)
[2021-05-10] MEDS: PRENATAL VITAMINS W/ FOLIC ACID TABLET (FP) PO SCH (09:27)
[2021-05-10] MEDS: METHOCARBAMOL 500 MG TABLET PO PRN ×2 (09:29→21:18)
[2021-05-10] MEDS: MELATONIN 5 MG TABLETS PO SCH (21:17)
[2021-05-10] MEDS: THIAMINE HCL 100 MG TABLET (FP) PO SCH (21:18)
[2021-05-10] MEDS: IBUPROFEN 400 MG TABLET (FP) PO PRN (21:21)
[2021-05-11] MEDS: IBUPROFEN 400 MG TABLET (FP) PO PRN (06:10)
[2021-05-11] MEDS: PRENATAL VITAMINS W/ FOLIC ACID TABLET (FP) PO SCH (09:39)
[2021-05-11] MEDS: METHYL SALICYLATE/MENTHOL OINT 30 GM TUBE TP SCH ×2 (09:39→21:03)
[2021-05-11] MEDS: METHOCARBAMOL 500 MG TABLET PO PRN ×2 (09:40→21:00)
[2021-05-11] MEDS: TOLNAFTATE 1% CREAM 15 GM TUBE TP SCH ×2 (09:40→21:03)
[2021-05-11] MEDS: THIAMINE HCL 100 MG TABLET (FP) PO SCH (21:00)
[2021-05-11] MEDS: MELATONIN 5 MG TABLETS PO SCH (21:00)
[2021-05-12 07:27] VITALS: BP 137/88; PULSE 92; TEMP 96
[2021-05-12] MEDS: TOLNAFTATE 1% CREAM 15 GM TUBE TP SCH (09:52)
[2021-05-12] MEDS: PRENATAL VITAMINS W/ FOLIC ACID TABLET (FP) PO SCH (09:52)
[2021-05-12] MEDS: METHOCARBAMOL 500 MG TABLET PO PRN (09:53)
[2021-05-12] MEDS: IBUPROFEN 400 MG TABLET (FP) PO PRN (09:54)
[2021-05-12] MEDS: METHYL SALICYLATE/MENTHOL OINT 30 GM TUBE TP SCH (09:57)
== END 2021-05-12 14:25 | disposition left against medical advice (07) | DRG 772 ==
LOC: YASAS 20:53 → Y5N 23:18
PROVIDERS: ADMIT Allergy & Immunology; ATTEND Allergy & Immunology
PROC: HZ42ZZZ Group Counseling for Substance Abuse Treatment, Cognitive-Behavioral (ICD-10-PCS; principal; 2021-05-06)
DX: F10.20 Alcohol dependence, uncomplicated (principal); F13.20 Sedative, hypnotic or anxiolytic dependence, uncomplicated; F16.20 Hallucinogen dependence, uncomplicated; F17.210 Nicotine dependence, cigarettes, uncomplicated; F91.8 Other conduct disorders; M17.11 Unilateral primary osteoarthritis, right knee; E66.9 Obesity, unspecified; Z68.34 Body mass index [BMI] 34.0-34.9, adult; Z91.19 Patient's noncompliance with other medical treatment and regimen
CPT/HCPCS: C9803; U0003; U0005

== ENCOUNTER 2021-06-27 18:17 | Inpatient (IN) | payer OTHER ==
[2021-06-27 20:40] VITALS: BMI 34.4
[2021-06-27] MEDS ORDERED: MAGNESIUM CITRATE 300 ML BOTTLE PO PRN (22:17)
[2021-06-27] MEDS ORDERED: MAGNESIUM HYDROX 2400MG/30ML ORAL SUSPENSION 30 ML CUP PO PRN (22:17)
[2021-06-27] MEDS ORDERED: NICOTINE POLACRILEX 2 MG GUM BUC PRN (22:17)
[2021-06-27] MEDS ORDERED: ACETAMINOPHEN 325 MG TABLET (FP) PO PRN (22:17)
[2021-06-27] MEDS ORDERED: ONDANSETRON *ODT* 4 MG TABLET SL PRN (22:17)
[2021-06-27] MEDS ORDERED: METHOCARBAMOL 500 MG TABLET PO PRN (22:17)
[2021-06-27] MEDS ORDERED: MAG HYDROX/AL HYDROX/SIMETH 30 ML UNIT-DOSE CUP PO PRN (22:17)
[2021-06-27] MEDS ORDERED: BISMUTH SUBSALICYLATE 524 MG/30 ML PO PRN (22:17)
[2021-06-27] MEDS ORDERED: diazePAM 5 MG TABLET PO PRN (22:19)
[2021-06-27] MEDS ORDERED: METOPROLOL TARTRATE 25 MG TABLET (FP) PO ONE (22:52)
[2021-06-28] MEDS: hydrOXYzine PAMOATE 25 MG CAPSULE (FP) PO PRN (11:18)
[2021-06-28] MEDS: PRENATAL VITAMINS W/ FOLIC ACID TABLET (FP) PO SCH (11:18)
[2021-06-28] MEDS: guaiFENesin 200 MG/10 ML 10 ML UNIT-DOSE CUPS PO PRN (12:00)
[2021-06-28 12:26] LABS: HEMATOCRIT 39.6 % (35.4-49); HEMOGLOBIN 13.1 GM/dL (11.7-16.9); MCH 23.7 pg (25.7-33.7); MCHC 33.1 g/dl (32.0-35.9); MEAN CELL VOLUME 71.6 fl (80-96); MEAN PLT VOLUME 8.5 fl (7.5-11.1); PLATELET COUNT 264 10^3/uL (134-434); RBC 5.53 M/mm3 (4.00-5.60); RDW 17.9 % (11.9-15.9); WHITE BLOOD COUNT 6.5 K/mm3 (4.0-10.0)
[2021-06-28 12:35] LABS: ALBUMIN 3.6 g/dl (3.4-5.0); BLOOD UREA NITROGEN 18.5 mg/dL (7-18)
[2021-06-28 12:36] LABS: BILIRUBIN,TOTAL 1.1 mg/dL (0.2-1); TOT PROT 6.9 g/dl (6.4-8.2)
[2021-06-28 12:37] LABS: CALCIUM 8.4 mg/dL (8.5-10.1)
[2021-06-28] MEDS: MENTHOL/PHENOL 1 EACH UD MM PRN (15:15)
[2021-06-29] MEDS: MELATONIN 5 MG TABLETS PO SCH ×2 (00:17→23:26)
[2021-06-29] MEDS: THIAMINE HCL 100 MG TABLET (FP) PO SCH ×2 (00:17→23:26)
[2021-06-29] MEDS: TOLNAFTATE 1% CREAM 15 GM TUBE TP SCH ×3 (00:20→23:27)
[2021-06-29] MEDS: guaiFENesin 200 MG/10 ML 10 ML UNIT-DOSE CUPS PO PRN ×4 (00:56→23:26)
[2021-06-29] MEDS: IBUPROFEN 400 MG TABLET (FP) PO PRN ×2 (00:57→18:43)
[2021-06-29] MEDS: MENTHOL/PHENOL 1 EACH UD MM PRN ×4 (00:57→23:14)
[2021-06-29] MEDS: ACETAMINOPHEN 325 MG TABLET (FP) PO PRN ×2 (07:12→23:27)
[2021-06-29] MEDS: PRENATAL VITAMINS W/ FOLIC ACID TABLET (FP) PO SCH (11:10)
[2021-06-29] MEDS: hydrOXYzine PAMOATE 25 MG CAPSULE (FP) PO PRN ×2 (11:11→18:42)
[2021-06-30] MEDS: TOLNAFTATE 1% CREAM 15 GM TUBE TP SCH (11:40)
[2021-06-30] MEDS: PRENATAL VITAMINS W/ FOLIC ACID TABLET (FP) PO SCH (11:40)
[2021-06-30] MEDS: guaiFENesin 200 MG/10 ML 10 ML UNIT-DOSE CUPS PO PRN (12:36)
[2021-06-30] MEDS: MENTHOL/PHENOL 1 EACH UD MM PRN (12:38)
[2021-06-30] MEDS: ACETAMINOPHEN 325 MG TABLET (FP) PO PRN (12:39)
[2021-06-30 12:48] VITALS: BP 155/84; PULSE 106; TEMP 96.9
[2021-07-02 13:22] LABS: HIV INTERPRETATION NEGATIVE (NEGATIVE)
== END 2021-06-30 12:41 | disposition home or self-care (01) | DRG 775 ==
LOC: YASAS 18:17 → Y3N 06-28 04:41 → UNDOADMIN 06-28 04:41 → Y3N 06-28 11:38
PROVIDERS: ADMIT Allergy & Immunology; ATTEND Allergy & Immunology
PROC: HZ2ZZZZ Detoxification Services for Substance Abuse Treatment (ICD-10-PCS; principal; 2021-06-28)
DX: F10.230 Alcohol dependence with withdrawal, uncomplicated (principal); F13.20 Sedative, hypnotic or anxiolytic dependence, uncomplicated; F16.20 Hallucinogen dependence, uncomplicated; F17.210 Nicotine dependence, cigarettes, uncomplicated; U07.1 COVID-19; I10 Essential (primary) hypertension; M17.11 Unilateral primary osteoarthritis, right knee
CPT/HCPCS: 36415; 80053; 85027; 86780; 87389; 93005; 93010; C9803; U0003; U0005

== ENCOUNTER 2021-07-08 19:17 | Inpatient (IN) | payer OTHER ==
[2021-07-08 20:32] VITALS: BMI 35.9
[2021-07-08] MEDS ORDERED: ACETAMINOPHEN 325 MG TABLET (FP) PO PRN (20:47)
[2021-07-08] MEDS ORDERED: IBUPROFEN 400 MG TABLET (FP) PO PRN (20:47)
[2021-07-08] MEDS ORDERED: ONDANSETRON *ODT* 4 MG TABLET SL PRN (20:47)
[2021-07-08] MEDS ORDERED: NICOTINE 10 MG CARTRIDGE (INHALER) IH PRN (20:47)
[2021-07-08] MEDS ORDERED: MAG HYDROX/AL HYDROX/SIMETH 30 ML UNIT-DOSE CUP PO PRN (20:47)
[2021-07-08] MEDS ORDERED: BISMUTH SUBSALICYLATE 524 MG/30 ML PO PRN (20:47)
[2021-07-08] MEDS ORDERED: MAGNESIUM HYDROX 2400MG/30ML ORAL SUSPENSION 30 ML CUP PO PRN (20:47)
[2021-07-08] MEDS ORDERED: MAGNESIUM CITRATE 300 ML BOTTLE PO PRN (20:47)
[2021-07-08] MEDS ORDERED: diazePAM 5 MG TABLET PO PRN (23:01)
[2021-07-09] MEDS ORDERED: diazePAM 5 MG TABLET ONE (02:42)
[2021-07-09] MEDS ORDERED: hydrOXYzine PAMOATE 25 MG CAPSULE (FP) PO ONE ×4 (02:47→15:24)
[2021-07-09] MEDS: THIAMINE HCL 100 MG TABLET (FP) PO SCH ×2 (03:00→23:06)
[2021-07-09] MEDS: MELATONIN 5 MG TABLETS PO SCH ×2 (03:00→23:07)
[2021-07-09] MEDS: hydrOXYzine PAMOATE 25 MG CAPSULE (FP) PO SCH ×6 (03:00→23:05)
[2021-07-09] MEDS: diazePAM 5 MG TABLET PO SCH ×7 (03:00→23:05)
[2021-07-09] MEDS: PRENATAL VITAMINS W/ FOLIC ACID TABLET (FP) PO SCH (10:30)
[2021-07-09] MEDS: METHOCARBAMOL 500 MG TABLET PO PRN (23:07)
[2021-07-10] MEDS: diazePAM 5 MG TABLET PO SCH ×3 (06:48→21:43)
[2021-07-10] MEDS: hydrOXYzine PAMOATE 25 MG CAPSULE (FP) PO SCH ×5 (07:10→21:45)
[2021-07-10] MEDS: PRENATAL VITAMINS W/ FOLIC ACID TABLET (FP) PO SCH (09:39)
[2021-07-10] MEDS: METHOCARBAMOL 500 MG TABLET PO PRN (09:39)
[2021-07-10] MEDS: MENTHOL/PHENOL 1 EACH UD MM PRN (09:53)
[2021-07-10 11:23] LABS: HEMATOCRIT 41.3 % (35.4-49); HEMOGLOBIN 13.7 GM/dL (11.7-16.9); MCH 23.7 pg (25.7-33.7); MCHC 33.2 g/dl (32.0-35.9); MEAN CELL VOLUME 71.6 fl (80-96); MEAN PLT VOLUME 8.4 fl (7.5-11.1); PLATELET COUNT 306 10^3/uL (134-434); RBC 5.76 M/mm3 (4.00-5.60); RDW 18.4 % (11.9-15.9); WHITE BLOOD COUNT 6.9 K/mm3 (4.0-10.0)
[2021-07-10 11:30] LABS: CALCIUM 9.1 mg/dL (8.5-10.1)
[2021-07-10 11:31] LABS: ALBUMIN 3.8 g/dl (3.4-5.0); BLOOD UREA NITROGEN 13.6 mg/dL (7-18)
[2021-07-10 11:34] LABS: CREATININE 1.1 mg/dL (0.55-1.3)
[2021-07-10 11:36] LABS: BILIRUBIN,TOTAL 0.8 mg/dL (0.2-1); TOT PROT 7.4 g/dl (6.4-8.2)
[2021-07-10 12:18] LABS: HIV INTERPRETATION NEGATIVE (NEGATIVE)
[2021-07-10] MEDS: MELATONIN 5 MG TABLETS PO SCH (21:43)
[2021-07-10] MEDS: THIAMINE HCL 100 MG TABLET (FP) PO SCH (21:43)
[2021-07-11] MEDS: hydrOXYzine PAMOATE 25 MG CAPSULE (FP) PO SCH (06:16)
[2021-07-11] MEDS: diazePAM 5 MG TABLET PO SCH ×2 (06:16→17:55)
[2021-07-11] MEDS: PRENATAL VITAMINS W/ FOLIC ACID TABLET (FP) PO SCH (10:21)
[2021-07-11] MEDS: ACETAMINOPHEN 325 MG TABLET (FP) PO PRN ×2 (10:29→17:57)
[2021-07-11] MEDS: MENTHOL/PHENOL 1 EACH UD MM PRN ×2 (10:30→17:59)
[2021-07-11] MEDS: hydrOXYzine PAMOATE 25 MG CAPSULE (FP) PO PRN ×2 (17:57→22:15)
[2021-07-11] MEDS: THIAMINE HCL 100 MG TABLET (FP) PO SCH (22:14)
[2021-07-11] MEDS: MELATONIN 5 MG TABLETS PO SCH (22:14)
[2021-07-12] MEDS: hydrOXYzine PAMOATE 25 MG CAPSULE (FP) PO PRN (05:34)
[2021-07-12] MEDS: ACETAMINOPHEN 325 MG TABLET (FP) PO PRN ×2 (05:34→10:55)
[2021-07-12] MEDS ORDERED: diazePAM 5 MG TABLET PO ONE (06:00)
[2021-07-12 08:43] VITALS: BP 124/78; PULSE 64; TEMP 98.2
[2021-07-12] MEDS: PRENATAL VITAMINS W/ FOLIC ACID TABLET (FP) PO SCH (10:54)
== END 2021-07-12 11:16 | disposition home or self-care (01) | DRG 775 ==
LOC: YASAS 19:17 → Y3N 07-09 15:20
PROVIDERS: ADMIT Allergy & Immunology; ATTEND Allergy & Immunology
PROC: HZ2ZZZZ Detoxification Services for Substance Abuse Treatment (ICD-10-PCS; principal; 2021-07-09)
DX: F10.230 Alcohol dependence with withdrawal, uncomplicated (principal); F16.20 Hallucinogen dependence, uncomplicated; F13.230 Sedative, hypnotic or anxiolytic dependence with withdrawal, uncomplicated; F17.210 Nicotine dependence, cigarettes, uncomplicated; R68.89 Other general symptoms and signs; R73.9 Hyperglycemia, unspecified; Z20.822 Contact with and (suspected) exposure to COVID-19; Z86.16 Personal history of COVID-19; Z87.828 Personal history of other (healed) physical injury and trauma; Z87.19 Personal history of other diseases of the digestive system
CPT/HCPCS: 36415; 80053; 85027; 86780; 87389; C9803; U0003; U0005

== ENCOUNTER 2021-07-24 19:04 | Inpatient (IN) | payer OTHER ==
[2021-07-24] MEDS ORDERED: MAG HYDROX/AL HYDROX/SIMETH 30 ML UNIT-DOSE CUP PO PRN (20:18)
[2021-07-24] MEDS ORDERED: MAGNESIUM CITRATE 300 ML BOTTLE PO PRN (20:18)
[2021-07-24] MEDS ORDERED: ONDANSETRON *ODT* 4 MG TABLET SL PRN (20:18)
[2021-07-24] MEDS ORDERED: ACETAMINOPHEN 325 MG TABLET (FP) PO PRN ×2 (20:18)
[2021-07-24] MEDS ORDERED: IBUPROFEN 400 MG TABLET (FP) PO PRN (20:18)
[2021-07-24] MEDS ORDERED: NICOTINE 10 MG CARTRIDGE (INHALER) IH PRN (20:18)
[2021-07-24] MEDS ORDERED: MENTHOL/PHENOL 1 EACH UD MM PRN (20:18)
[2021-07-24] MEDS ORDERED: MAGNESIUM HYDROX 2400MG/30ML ORAL SUSPENSION 30 ML CUP PO PRN (20:18)
[2021-07-24] MEDS ORDERED: BISMUTH SUBSALICYLATE 524 MG/30 ML PO PRN (20:18)
[2021-07-24] MEDS ORDERED: METHOCARBAMOL 500 MG TABLET PO PRN (20:18)
[2021-07-24] MEDS ORDERED: MELATONIN 5 MG TABLETS PO SCH (22:00)
[2021-07-24] MEDS ORDERED: THIAMINE HCL 100 MG TABLET (FP) PO SCH (22:00)
[2021-07-24 22:06] VITALS: BMI 37.3
[2021-07-25] MEDS ORDERED: NICOTINE 14 MG/24 HOURS TOPICAL PATCH TD SCH (10:00)
[2021-07-25] MEDS ORDERED: PRENATAL VITAMINS W/ FOLIC ACID TABLET (FP) PO SCH (10:00)
[2021-07-25 10:26] LABS: HEMATOCRIT 43.5 % (35.4-49); HEMOGLOBIN 14.2 GM/dL (11.7-16.9); MCH 23.9 pg (25.7-33.7); MCHC 32.8 g/dl (32.0-35.9); MEAN PLT VOLUME 9.3 fl (7.5-11.1); PLATELET COUNT 231 10^3/uL (134-434); RBC 5.96 M/mm3 (4.00-5.60); RDW 19.1 % (11.9-15.9)
[2021-07-25] MEDS ORDERED: amLODIPine BESYLATE 10 MG TABLET (FP) PO SCH (10:30)
[2021-07-25 10:43] LABS: TOT PROT 7.9 g/dl (6.4-8.2)
[2021-07-25 10:54] LABS: ALBUMIN 4.2 g/dl (3.4-5.0); BLOOD UREA NITROGEN 21.2 mg/dL (7-18)
[2021-07-25 10:56] LABS: CREATININE 1.1 mg/dL (0.55-1.3)
[2021-07-25 10:59] LABS: BILIRUBIN,TOTAL 1.2 mg/dL (0.2-1)
[2021-07-25 12:46] VITALS: BP 149/94; PULSE 99; TEMP 96.4
== END 2021-07-25 13:05 | disposition home or self-care (01) | DRG 776 ==
LOC: YASAS 19:04 → Y6N 22:16 → UNDOADMIN 22:16 → Y6N 07-25 00:54 → UNDODISIN 07-25 13:05
PROVIDERS: ADMIT Allergy & Immunology; ATTEND Allergy & Immunology
PROC: HZ2ZZZZ Detoxification Services for Substance Abuse Treatment (ICD-10-PCS; principal; 2021-07-24)
DX: F13.230 Sedative, hypnotic or anxiolytic dependence with withdrawal, uncomplicated (principal); F16.20 Hallucinogen dependence, uncomplicated; F17.210 Nicotine dependence, cigarettes, uncomplicated; I10 Essential (primary) hypertension; M17.11 Unilateral primary osteoarthritis, right knee; Z56.0 Unemployment, unspecified; Z59.00 Homelessness unspecified
CPT/HCPCS: 36415; 80053; 85027; 86780; C9803; U0003; U0005

== ENCOUNTER 2021-08-12 19:23 | Inpatient (IN) | payer OTHER ==
[2021-08-12 22:23] VITALS: BMI 38.4
[2021-08-13] MEDS ORDERED: ACETAMINOPHEN 325 MG TABLET (FP) PO PRN ×2 (01:43)
[2021-08-13] MEDS ORDERED: MENTHOL/PHENOL 1 EACH UD MM PRN (01:43)
[2021-08-13] MEDS ORDERED: ONDANSETRON *ODT* 4 MG TABLET SL PRN (01:43)
[2021-08-13] MEDS ORDERED: P-EPHED 60MG/TRIPROLIDI 2.5MG TABLET PO PRN (01:43)
[2021-08-13] MEDS ORDERED: MAG HYDROX/AL HYDROX/SIMETH 30 ML UNIT-DOSE CUP PO PRN (01:43)
[2021-08-13] MEDS ORDERED: DICYCLOMINE HCL 10 MG CAPSULE PO PRN (01:43)
[2021-08-13] MEDS ORDERED: BISMUTH SUBSALICYLATE 524 MG/30 ML PO PRN (01:43)
[2021-08-13] MEDS ORDERED: guaiFENesin 200 MG/10 ML 10 ML UNIT-DOSE CUPS PO PRN (01:43)
[2021-08-13] MEDS ORDERED: MAGNESIUM CITRATE 300 ML BOTTLE PO PRN (01:43)
[2021-08-13] MEDS ORDERED: LOPERAMIDE HCL 2 MG CAPSULE PO PRN (01:43)
[2021-08-13] MEDS ORDERED: NICOTINE POLACRILEX 2 MG GUM BUC PRN (01:43)
[2021-08-13] MEDS ORDERED: MAGNESIUM HYDROX 2400MG/30ML ORAL SUSPENSION 30 ML CUP PO PRN (01:43)
[2021-08-13] MEDS: NICOTINE 14 MG/24 HOURS TOPICAL PATCH TD SCH (11:07)
[2021-08-13] MEDS: TOLNAFTATE 1% CREAM 15 GM TUBE TP SCH ×3 (11:08→23:25)
[2021-08-13] MEDS: amLODIPine BESYLATE 10 MG TABLET (FP) PO SCH (11:08)
[2021-08-13] MEDS: PRENATAL VITAMINS W/ FOLIC ACID TABLET (FP) PO SCH (11:08)
[2021-08-13] MEDS: hydrOXYzine PAMOATE 25 MG CAPSULE (FP) PO PRN (11:09)
[2021-08-13] MEDS: METHOCARBAMOL 500 MG TABLET PO PRN (11:10)
[2021-08-13] MEDS: diazePAM 5 MG TABLET PO SCH ×3 (12:49→23:25)
[2021-08-13] MEDS: IBUPROFEN 400 MG TABLET (FP) PO PRN (18:19)
[2021-08-13] MEDS: LIDOCAINE 5% TOPICAL PATCH TP SCH ×2 (23:25→23:55)
[2021-08-13] MEDS: THIAMINE HCL 100 MG TABLET (FP) PO SCH ×2 (23:25→23:56)
[2021-08-13] MEDS: MELATONIN 5 MG TABLETS PO SCH ×2 (23:25→23:56)
[2021-08-13] MEDS: LIDOCAINE PATCH REMOVAL MC SCH (23:55)
[2021-08-14] MEDS: diazePAM 5 MG TABLET PO PRN ×3 (03:05→18:02)
[2021-08-14] MEDS: diazePAM 5 MG TABLET PO SCH ×3 (06:20→22:17)
[2021-08-14] MEDS: hydrOXYzine PAMOATE 25 MG CAPSULE (FP) PO PRN ×2 (06:22→23:13)
[2021-08-14] MEDS: NICOTINE 14 MG/24 HOURS TOPICAL PATCH TD SCH (10:29)
[2021-08-14] MEDS: PRENATAL VITAMINS W/ FOLIC ACID TABLET (FP) PO SCH (10:29)
[2021-08-14] MEDS: TOLNAFTATE 1% CREAM 15 GM TUBE TP SCH ×2 (10:29→22:50)
[2021-08-14] MEDS: LIDOCAINE 5% TOPICAL PATCH TP SCH (10:29)
[2021-08-14] MEDS: amLODIPine BESYLATE 10 MG TABLET (FP) PO SCH (10:29)
[2021-08-14] MEDS: cloNIDine HCL 0.1 MG TABLET PO PRN (14:04)
[2021-08-14] MEDS: IBUPROFEN 400 MG TABLET (FP) PO PRN (18:02)
[2021-08-14] MEDS: METHOCARBAMOL 500 MG TABLET PO PRN (21:45)
[2021-08-14] MEDS: THIAMINE HCL 100 MG TABLET (FP) PO SCH (21:45)
[2021-08-14] MEDS: MELATONIN 5 MG TABLETS PO SCH (21:45)
[2021-08-14] MEDS: LIDOCAINE PATCH REMOVAL MC SCH (22:50)
[2021-08-15] MEDS: diazePAM 5 MG TABLET PO SCH ×2 (06:47→18:00)
[2021-08-15] MEDS: METHOCARBAMOL 500 MG TABLET PO PRN ×2 (06:57→19:36)
[2021-08-15] MEDS: IBUPROFEN 400 MG TABLET (FP) PO PRN ×3 (06:57→23:05)
[2021-08-15] MEDS: PRENATAL VITAMINS W/ FOLIC ACID TABLET (FP) PO SCH (10:26)
[2021-08-15] MEDS: amLODIPine BESYLATE 10 MG TABLET (FP) PO SCH (10:26)
[2021-08-15] MEDS: diazePAM 5 MG TABLET PO PRN ×4 (10:29→23:33)
[2021-08-15] MEDS: LIDOCAINE 5% TOPICAL PATCH TP SCH (10:30)
[2021-08-15] MEDS: TOLNAFTATE 1% CREAM 15 GM TUBE TP SCH ×2 (10:32→23:07)
[2021-08-15] MEDS: NICOTINE 14 MG/24 HOURS TOPICAL PATCH TD SCH (10:32)
[2021-08-15 16:32] LABS: HEMATOCRIT 41.1 % (35.4-49); HEMOGLOBIN 13.8 GM/dL (11.7-16.9); MCH 24.3 pg (25.7-33.7); MCHC 33.6 g/dl (32.0-35.9); MEAN CELL VOLUME 72.4 fl (80-96); MEAN PLT VOLUME 8.7 fl (7.5-11.1); PLATELET COUNT 290 10^3/uL (134-434); RBC 5.69 M/mm3 (4.00-5.60); RDW 18.9 % (11.9-15.9); WHITE BLOOD COUNT 8.3 K/mm3 (4.0-10.0)
[2021-08-15 16:47] LABS: CALCIUM 8.9 mg/dL (8.5-10.1)
[2021-08-15 16:48] LABS: ALBUMIN 4.1 g/dl (3.4-5.0)
[2021-08-15 16:51] LABS: CREATININE 0.9 mg/dL (0.55-1.3)
[2021-08-15 16:52] LABS: BILIRUBIN,TOTAL 0.6 mg/dL (0.2-1)
[2021-08-15 16:53] LABS: TOT PROT 7.5 g/dl (6.4-8.2)
[2021-08-15 17:32] LABS: HIV INTERPRETATION NEGATIVE (NEGATIVE)
[2021-08-15] MEDS: hydrOXYzine PAMOATE 25 MG CAPSULE (FP) PO PRN (20:29)
[2021-08-15] MEDS: MELATONIN 5 MG TABLETS PO SCH (23:00)
[2021-08-15] MEDS: LIDOCAINE PATCH REMOVAL MC SCH (23:00)
[2021-08-15] MEDS: cloNIDine HCL 0.1 MG TABLET PO PRN (23:05)
[2021-08-15] MEDS: THIAMINE HCL 100 MG TABLET (FP) PO SCH (23:06)
[2021-08-16] MEDS: METHOCARBAMOL 500 MG TABLET PO PRN ×2 (03:22→10:09)
[2021-08-16] MEDS: hydrOXYzine PAMOATE 25 MG CAPSULE (FP) PO PRN ×2 (03:22→10:09)
[2021-08-16] MEDS ORDERED: diazePAM 5 MG TABLET PO ONE (06:00)
[2021-08-16 08:10] LABS: SARS-CoV-2 NAA Not Detected (Not Detected)
[2021-08-16 09:19] VITALS: TEMP 98.1
[2021-08-16] MEDS: PRENATAL VITAMINS W/ FOLIC ACID TABLET (FP) PO SCH (10:08)
[2021-08-16] MEDS: diazePAM 5 MG TABLET PO PRN (10:09)
[2021-08-16] MEDS: amLODIPine BESYLATE 10 MG TABLET (FP) PO SCH (10:09)
[2021-08-16] MEDS: LIDOCAINE 5% TOPICAL PATCH TP SCH (10:10)
[2021-08-16] MEDS: NICOTINE 14 MG/24 HOURS TOPICAL PATCH TD SCH (10:10)
[2021-08-16] MEDS: TOLNAFTATE 1% CREAM 15 GM TUBE TP SCH (10:10)
[2021-08-16] MEDS ORDERED: PENICILLIN G BENZATHINE 2,400,000 UNIT/4 ML PFS IM ONE (12:21)
[2021-08-16 13:07] VITALS: BP 159/92; PULSE 113
== END 2021-08-16 13:59 | disposition other institution (70) | DRG 775 ==
LOC: YASAS 19:23 → Y6N 08-13 03:35 → UNDOADMIN 08-13 03:35 → Y6N 08-13 16:33
PROVIDERS: ADMIT Allergy & Immunology; ATTEND Allergy & Immunology
PROC: HZ2ZZZZ Detoxification Services for Substance Abuse Treatment (ICD-10-PCS; principal; 2021-08-13)
DX: F10.230 Alcohol dependence with withdrawal, uncomplicated (principal); F13.230 Sedative, hypnotic or anxiolytic dependence with withdrawal, uncomplicated; F17.210 Nicotine dependence, cigarettes, uncomplicated; F19.282 Other psychoactive substance dependence with psychoactive substance-induced sleep disorder; F19.24 Other psychoactive substance dependence with psychoactive substance-induced mood disorder; I10 Essential (primary) hypertension; A53.0 Latent syphilis, unspecified as early or late; Z86.19 Personal history of other infectious and parasitic diseases; Z86.79 Personal history of other diseases of the circulatory system; Z87.828 Personal history of other (healed) physical injury and trauma; Z91.018 Allergy to other foods; Z59.00 Homelessness unspecified; Z56.0 Unemployment, unspecified
CPT/HCPCS: 36415; 80053; 85027; 86593; 86780; 87389; 87811; C9803; J0735; U0003; U0005

== ENCOUNTER 2021-08-19 03:46 | Emergency (ER) | payer OTHER ==
[2021-08-19 03:56] VITALS: TEMP 97.8; BMI 30.3
[2021-08-19] MEDS ORDERED: PENICILLIN G BENZATHINE 2,400,000 UNIT/4 ML PFS IM ONE (05:12)
[2021-08-19] MEDS ORDERED: PENICILLIN G BENZATHINE 2,400,000 UNIT/4 ML PFS ONE (05:17)
[2021-08-19 06:01] LABS: ALBUMIN 4.5 g/dl (3.4-5.0); BLOOD UREA NITROGEN 18.3 mg/dL (7-18); CALCIUM 9.4 mg/dL (8.5-10.1)
[2021-08-19 06:03] LABS: CREATININE 0.9 mg/dL (0.55-1.3)
[2021-08-19 06:05] LABS: BILIRUBIN,TOTAL 1.2 mg/dL (0.2-1); TOT PROT 8.1 g/dl (6.4-8.2)
[2021-08-19 06:27] LABS: BASO % 0.5 % (0-2.0); EOS % 1.2 % (0-4.5); HEMATOCRIT 40.1 % (35.4-49); LYMPH % 18.6 % (8-40); MEAN CELL VOLUME 71.4 fl (80-96); MEAN PLT VOLUME 8.4 fl (7.5-11.1); MONO % 12.5 % (3.8-10.2); NEUT % 67.2 % (42.8-82.8); PLATELET COUNT 286 10^3/uL (134-434); RBC 5.61 M/mm3 (4.00-5.60); RDW 18.7 % (11.9-15.9); WHITE BLOOD COUNT 9.9 K/mm3 (4.0-10.0)
[2021-08-19] MEDS ORDERED: ASPIRIN 81 MG CHEWABLE TABLETS PO ONE (06:36)
[2021-08-19] MEDS ORDERED: ASPIRIN 81 MG CHEWABLE TABLETS ONE (06:44)
[2021-08-19 07:46] VITALS: BP 160/98; PULSE 98
== END 2021-08-19 09:28 | disposition home or self-care (01) ==
LOC: JER 03:46
DX: R07.9 Chest pain, unspecified (principal)
CPT/HCPCS: 36415; 71046-TC-FY; 80053; 84484; 85025; 93005; 93010; 99284-25

== ENCOUNTER 2021-08-23 00:51 | Inpatient (IN) | payer OTHER ==
[2021-08-23 01:26] VITALS: BMI 38.1
[2021-08-23] MEDS ORDERED: ACETAMINOPHEN 325 MG TABLET (FP) PO PRN (03:57)
[2021-08-23] MEDS ORDERED: NICOTINE POLACRILEX 2 MG GUM BUC PRN (03:57)
[2021-08-23] MEDS ORDERED: P-EPHED 60MG/TRIPROLIDI 2.5MG TABLET PO PRN (03:57)
[2021-08-23] MEDS ORDERED: MAGNESIUM HYDROX 2400MG/30ML ORAL SUSPENSION 30 ML CUP PO PRN (03:57)
[2021-08-23] MEDS ORDERED: MAGNESIUM CITRATE 300 ML BOTTLE PO PRN (03:57)
[2021-08-23] MEDS ORDERED: MAG HYDROX/AL HYDROX/SIMETH 30 ML UNIT-DOSE CUP PO PRN (03:57)
[2021-08-23] MEDS ORDERED: MENTHOL/PHENOL 1 EACH UD MM PRN (03:57)
[2021-08-23] MEDS ORDERED: IBUPROFEN 400 MG TABLET (FP) PO PRN (03:57)
[2021-08-23] MEDS ORDERED: LOPERAMIDE HCL 2 MG CAPSULE PO PRN (03:57)
[2021-08-23] MEDS ORDERED: guaiFENesin 200 MG/10 ML 10 ML UNIT-DOSE CUPS PO PRN (03:57)
[2021-08-23] MEDS ORDERED: hydrOXYzine PAMOATE 25 MG CAPSULE (FP) PO PRN ×2 (03:57→12:54)
[2021-08-23] MEDS ORDERED: LISINOPRIL 5 MG TABLET PO SCH (10:00)
[2021-08-23] MEDS ORDERED: PRENATAL VITAMINS W/ FOLIC ACID TABLET (FP) PO SCH (10:00)
[2021-08-23] MEDS ORDERED: NICOTINE 14 MG/24 HOURS TOPICAL PATCH TD SCH (10:00)
[2021-08-23 10:45] VITALS: BP 150/92; PULSE 96; TEMP 98.8
[2021-08-23] MEDS ORDERED: hydrOXYzine PAMOATE 50 MG CAPSULE (FP) PO PRN (14:15)
[2021-08-23] MEDS ORDERED: MELATONIN 5 MG TABLETS PO SCH (22:00)
[2021-08-23] MEDS ORDERED: traZODone HCL 50 MG TABLET (FP) PO SCH (22:00)
[2021-08-23] MEDS ORDERED: THIAMINE HCL 100 MG TABLET (FP) PO SCH (22:00)
== END 2021-08-23 14:07 | disposition left against medical advice (07) | DRG 770 ==
LOC: YASAS 00:51 → Y3W 03:54
PROVIDERS: ADMIT Allergy & Immunology; ATTEND Allergy & Immunology
PROC: HZ42ZZZ Group Counseling for Substance Abuse Treatment, Cognitive-Behavioral (ICD-10-PCS; principal; 2021-08-23)
DX: F10.20 Alcohol dependence, uncomplicated (principal); F13.20 Sedative, hypnotic or anxiolytic dependence, uncomplicated; F16.20 Hallucinogen dependence, uncomplicated; F12.20 Cannabis dependence, uncomplicated; F17.210 Nicotine dependence, cigarettes, uncomplicated; F10.24 Alcohol dependence with alcohol-induced mood disorder; G47.00 Insomnia, unspecified; Z56.0 Unemployment, unspecified; Z59.00 Homelessness unspecified
CPT/HCPCS: C9803; U0003; U0005

== ENCOUNTER 2023-06-13 01:52 | Emergency (ER) | payer OTHER ==
[2023-06-13 02:07] VITALS: BP 148/95; PULSE 94; RESP 22; TEMP 98.4; BMI 42.3
[2023-06-13] MEDS ORDERED: LIDOCAINE 5% TOPICAL PATCH TP ONE (03:15)
[2023-06-13] MEDS ORDERED: LIDOCAINE 4% PATCH TP ONE (03:26)
[2023-06-13] MEDS ORDERED: IBUPROFEN 400 MG TABLET (FP) PO ONE (04:30)
[2023-06-13] MEDS ORDERED: LIDOCAINE PATCH REMOVAL MC SCH (22:00)
== END 2023-06-13 04:37 | disposition home or self-care (01) ==
LOC: JER 01:52
DX: S86.912A Strain of unspecified muscle(s) and tendon(s) at lower leg level, left leg, initial encounter (principal); X50.1XXA Overexertion from prolonged static or awkward postures, initial encounter; Y92.9 Unspecified place or not applicable
CPT/HCPCS: 73562-TC-LT-FY; 99283-25